=== PATIENT | male | born 1960 | race Caucasian/White ===

== ENCOUNTER 2016-08-05 23:34 | Emergency (ER) ==
[2016-08-06 01:26] LABS: URINE MICRO REVIEW NEEDED? NO; URINE SOURCE VOIDED
[2016-08-06 01:51] LABS: BILIRUBIN URINE NEGATIVE (NEGATIVE); BLOOD URINE NEGATIVE (NEGATIVE); COLOR YELLOW; GLUCOSE URINE NEGATIVE (NEGATIVE); LEUKOCYTES URINE NEGATIVE (NEGATIVE); NITRITE URINE NEGATIVE (NEGATIVE); PROTEIN URINE NEGATIVE (NEGATIVE); SP GRAVITY URINE 1.018; TURBIDITY URINE CLEAR (CLEAR); UROBILINOGEN URINE NORMAL (NORMAL)
[2016-08-06 01:52] LABS: UR EPITHELIAL CELLS <10 /HPF (<10); URINE BACTERIA NEGATIVE /HPF; URINE RBC <10 /HPF (<10); URINE WBC <10 /HPF (<10)
--- NOTE | 2016-08-06 02:19 | PROVIDER DOCUMENTATION ---
HPI-Musculoskeletal Pain/Inj - GENERAL Chief Complaint: Fall Stated Complaint: @08/04 0900 RIBS/ BACK INJURY Time Seen by Provider: 08/06/16 01:57 Source: patient - HX OF PRESENT ILLNESS-MUSKULOSKELTAL Nature of Presenting Problem: PT IS A 55YOM PRESENTING TO THE ED C/O FALL. PT STATES HE TRIPPED COMING OUT OF HIS TRAILER ON TO SOME BLOCKS AND LANDED ON HIS LEFT CVA AREA WITH PAIN IN THE 7TH OR 8TH RIB AREA. PT STATES IT HURTS TO TAKE A DEEP BREATH, SNEEZE, COUGH, LAY ON BACK OR OR THE LEFT SIDE. HE STATES HE FEELS LIKE SOMETHING IS MOVING OR RUBBING IN THERE. NO DEFORMITY OR BRUISING NOTED. NO OTHER COMPLAINTS NOTED AT THIS TIME Quality of Pain: reports: aching, sharp, stabbing Severity in ED: moderate Onset/Duration: 2 days ago Timing: still present Modifying Factors: improves with: lying down, movement, palpation Any recent injury?: Yes (FALL) Locality of Occurance: Home Similar Symptoms Previously?: No Recently seen or treated by another doctor?: No - FALL INJURY Location of Pain/Injury: reports: other (LEFT 7-8TH RIB AREA) Pain Radiation: reports: no radiation Reason for Fall: reports: tripped Symptoms prior to fall:: reports: none Loss of Consciousness: no loss of consciousness Injury Associated Symptoms: reports: pain with inspiration. denies: chest pain , diaphoresis, trouble walking - TRUNK INJURY Location of Injury(s)/Pain: reports: ribs Context / Method of Injury: reports: fall Associated Symptoms: reports: back/neck pain, pain with breathing. denies: sensory/motor loss Review of Systems - Adult - REVIEW OF SYSTEMS - ADULT Constitutional: reports: no symptoms reported Eyes: reports: no symptoms reported Ears, Nose, Mouth & Throat: reports: no symptoms reported Cardiovascular: reports: no symptoms reported Respiratory: reports: no symptoms reported Gastrointestinal: reports: no symptoms reported Genitourinary: reports: no symptoms reported Musculoskeletal: reports: see HPI, back pain. denies: frequent leg cramps, neck pain Integumentary: reports: no symptoms reported Neurological: reports: no symptoms reported Psychiatric: reports: no symptoms reported Endocrine: reports: no symptoms reported Hematologic/Lymphatic: reports: no symptoms reported Allergic/Immunologic: reports: no symptoms reported All Other Systems: Reviewed and Negative Past History - Adult - PAST MEDICAL HISTORY-ADULT Review of Records: reports: Old Records Reviewed, Nursing Assessment Review, Medications Reviewed, Social history reviewed & non-contributory. Major Childhood Illnesses: reports: denies history Cardiovascular: reports: denies history Respiratory: reports: denies history Gastrointestinal: reports: denies history Obstetrical/Gynecological: reports: denies history Genitourinary: reports: denies history Musculoskeletal: reports: denies history Neurological: reports: denies history Endocrine/Immune: reports: denies history Other Conditions: reports: denies history - IMMUNIZATION STATUS Childhood Immunizations: See Nurse Assessment Flu Vaccine: See Nurse Assessment - FAMILY HISTORY Family History: reviewed, not pertinent - SOCIAL HISTORY Smoking: cigarettes, greater than 1 pack/day Provider spent 3-5 mins advising pt. on dangers of tobacco.: Discussed manners to quit use, and f/u contacts for add'l counseling. Substance Use: none/never, denies Alcohol Use Frequency: never Living Situation: alone Physical Exam-Injury Related - Physical Exam-Injury Related Initial Vital Signs Reviewed: Yes General Appearance: alert, moderate distress. negative: appears well, no apparent distress, slow to respond Eyes: PERRL/EOMI, pink conjunctivae Head, Ears, Nose, Mouth & Throat: normocephalic/atraumatic, moist mucous membranes, normal ENT inspection, TMs normal, pharynx normal Neck: non-tender, full range of motion, supple, normal inspection Respiratory: lungs clear, normal breath sounds, no respiratory distress, no accessory muscle use, pain on inspiration, rib tenderness. negative: chest non- tender, no pleuratic chest pain Cardiovascular: normal peripheral pulses, regular rate, rhythm, no edema, no gallop, no JVD, no murmur Abdominal Exam: normal bowel sounds, non tender, soft, no organomegaly, no pulsatile mass Lymphatic: no adenopathy Back Exam: normal inspection, no CVA tenderness, no vertebral tenderness Extremity: normal range of motion, non-tender, normal gait, normal inspection, no pedal edema, no calf tenderness, normal capillary refill, pelvis stable Integumentary: normal color, warm/dry Neurologic: coverer II-XII nml as tested, grossly normal, no motor/sensory deficits , abnormal cerebellar tests, abnormal coverer II-XII, abnormal gait Psych/Mental Status: normal mood/affect, normal thought content, normal thought process, oriented x 3 - Glascow Coma Score Best Eye Response (Jonathon): (4) open spontaneously Best Verbal Response (Norwell): (5) oriented Best Motor Response (Jonathon): (6) obeys commands Progress - PLAN OF CARE/RESULTS Progress/Plan/Lab Results: Laboratory Tests 08/06/16 01:00 Urine Source VOIDED Urine Color YELLOW Urine Turbidity CLEAR Urine pH 6.0 Ur Specific Ferguson 1.018 Urine Protein NEGATIVE Ur Glucose (Stick) NEGATIVE Ur Ketones (Stick) NEGATIVE Urine Blood NEGATIVE Urine Nitrite NEGATIVE Urine Bilirubin NEGATIVE Urobilinogen Dipstick NORMAL Urine Leukocytes NEGATIVE Urine WBC (Auto) <10 Urine RBC (Auto) <10 U Epithel Cells (Auto) <10 Urine Bacteria (Auto) NEGATIVE Orders Category Date Time Status RIBS UNILAT W/PA CHEST LEFT [RAD] Stat Exams 08/05/16 23:52 Taken URINALYSIS [URINALYSIS] Stat Lab 08/06/16 01:00 Completed Vital Signs - 24 hr 08/05/16 23:45 Temperature 97.9 F Pulse Rate 70 Respiratory 16 Rate Blood Pressure 145/91 O2 Sat by Pulse 99 Oximetry - XRAY 1 XRAY: Bilateral XRAY Study: Ribs (PADMINI CASTANEDA) Departure - Departure Time of Disposition Order: 02:23 DIAGNOSIS: Contusion of rib on left side Qualifiers: Encounter type: initial encounter Qualified Code(s): S20.212A - Contusion of left front wall of thorax, initial encounter Disposition: HOME 01 Certified Medical Emergency: Emergent Condition: Stable Additional Instructions: ED Follow Up Instructions: You have been treated by a care provider in the Emergency Department. These instructions are being provided to you so you can have an understanding of how to care for yourself upon discharge. Upon discharge from the Emergency Department, you are responsible for making arrangements for follow-up care by a physician of your choice. Take all prescribed medications as directed. Return to the Emergency Department immediately for any new or worsening symptoms. You may call the Physician Referral phone number at [phone] to obtain a list of Physicians who are taking new patients. Attestation - Scribe Verification/Attestation Scribe:: Helene Wheeler Acting as Scribe for:: John Urrutiaibbarb documention review:: This chart was documented by a scribe and accurately reflects the service the provider performed and the decisions made by the provider. Physician Attestation - Physician Attestation I, the provider, attest to the following statement:: John Castaneda Physician documentation Attestation:: This documentation recorded by the scribe accurately reflects the service I personally performed and the decisions made by me.
[2016-08-06] MEDS ORDERED: PERCOCET-10 PO ONE (02:28)
[2016-08-06 02:43] VITALS: BP 163/91
--- NOTE | 2016-08-06 08:48 | Diag Imaging Result Document ---
PROCEDURE NAME: RIBS UNILAT W/PA CHEST LEFT - 08/05/2016 PA CHEST AND LEFT RIB SERIES, 5 VIEWS: FINDINGS: There is no evidence of pneumothorax or pleural fluid collection. The heart size and pulmonary vascularity are within normal limits. There are no previous studies available for comparison. There is no evidence of acute pulmonary disease otherwise. There is an apparent healing fracture of the lateral 8th rib. No evidence of acute fracture is present. IMPRESSION: No evidence of acute disease.
== END 2016-08-06 02:43 | disposition home or self-care (01) ==
LOC: ED 23:34
DX: S20.212A Contusion of left front wall of thorax, initial encounter (principal); R07.81 Pleurodynia; R07.1 Chest pain on breathing; M54.9 Dorsalgia, unspecified; R10.9 Unspecified abdominal pain; F17.210 Nicotine dependence, cigarettes, uncomplicated; Z71.6 Tobacco abuse counseling; W01.198A Fall on same level from slipping, tripping and stumbling with subsequent striking against other object, initial encounter
CPT/HCPCS: 71101; 81001

== ENCOUNTER 2018-11-20 16:18 | Inpatient (IN) ==
[2018-11-20] MEDS ORDERED: ZOFRAN IV ONE (16:36)
[2018-11-20] MEDS ORDERED: NS 1,000 ML IV ONE ×3 (16:36→18:17)
[2018-11-20] MEDS ORDERED: ATIVAN IV ONE ×2 (17:14→20:43)
[2018-11-20 17:16] LABS: BASO# 0.03 X1000 (0.0-0.2); BASO% 0.3 % (0.0-0.8); HEMATOCRIT 49.2 % (42.0-52.0); HEMOGLOBIN 17.6 g/dL (14.0-18.0); IMM GRAN# 0.02 X1000 (0.0-0.04); IMM GRAN% 0.2 % (0.0-0.5); LYMPH# 1.57 X1000 (1.2-3.4); LYMPH% 14.6 % (20.5-51.1); MCH 30.5 PG (27-31); MCHC 35.8 g/dL (33-37); MCV 85.3 FL (81-99); MONO% 6.5 % (1.7-9.3); MPV 9.1 FL (7.4-10.4); NEUT# 8.44 X1000 (1.4-6.5); NEUT% 78.4 % (42.2-75.2); PLT 285 X1000 (130-400); RBC 5.77 XMIL (4.7-6.1); RDW 12.2 % (11.5-14.5); WBC 10.76 X1000 (4.8-10.8)
[2018-11-20 17:45] LABS: AGAP 31; ALB/GLOB RATIO 1.1; ALBUMIN 4.2 g/dL (3.5-5.0); ALKALINE PHOSPHATASE 81 U/L (32-122); AMYLASE 47 U/L (20-200); BUN 13 mg/dL (8-22); CALCIUM 8.7 mg/dL (8.8-10.2); CHLORIDE 90 mmol/L (98-107); COSMO 279; CREATININE 0.7 mg/dL (0.7-1.2); ESTIMATED GFR > 60; GLUCOSE 160 mg/dL (70-104); GOT 99 U/L (10-34); GPT 96 U/L (10-44); LIPASE 19 U/L (13-60); MAGNESIUM 1.6 mg/dL (1.5-2.7); POTASSIUM 3.2 mmol/L (3.5-5.1); SODIUM 138 mmol/L (136-145); TCO2 17 mmol/L (25-35)
[2018-11-20] MEDS ORDERED: POTASSIUM CHLORIDE 20 MEQ/SWI 20 MEQ/100 ML IVPB IV ONE (17:53)
[2018-11-20 18:11] LABS: ALLEN TEST YES; BE -2.2 mmoll (-3.0-3.0); BLOOD TYPE ARTERIAL; HCO3-(ACT) 23.1 mmoll (20.0-26.0); METHB 0.9 % (0.0-1.5); O2(CT) 22.4 mL/dL (15.0-23.0); O2HB 93.7 % (95.0-99.0); PCO2(98.6) 34 mmHg (35-45); PO2(98.6) 73 mmHg (60-100); SAMPLE BLOOD; SAO2 96.1 % (95.0-100.0); pH(98.6) 7.41 (7.35-7.45)
[2018-11-20 18:12] LABS: MODALITY ROOM AIR
[2018-11-20] MEDS ORDERED: ZOSYN 3.375 GM in NS 50 ML IV ONE (18:16)
[2018-11-20] MEDS ORDERED: MAGNESIUM SULFATE 2 GM/S.W.I. 2 GM/50 ML IVPB IV ONE (18:25)
[2018-11-20] MEDS ORDERED: ATARAX PO PRN (18:29)
[2018-11-20] MEDS ORDERED: M.V.I.-12 10 ML, FOLIC ACID 1 MG, MAGNESIUM SULFATE 1 GM, THIAMINE 100 MG in NS 1,000 ML IV ONE (18:29)
--- NOTE | 2018-11-20 19:33 | HISTORY AND PHYSICAL ---
CHIEF COMPLAINT: "I've been drinking a lot and I'm going through DTs. I need you to stop it." HISTORY OF PRESENT ILLNESS: This is a 58-year-old gentleman with a history of chronic alcohol abuse, admitting to 2 pints of vodka daily, he said since he was 6 years old. He also has a history of paranoid schizophrenia, dementia and hypertension. He presents to the emergency room complaining of nausea, vomiting and alcohol withdrawal. He states that normally he drinks 2 pints of vodka a day, but yesterday afternoon and last night he drank half a gallon, maybe more. He said he was depressed. He was trying to kill himself. At this time he states that he does not want to . In fact, he is asking us to help him. He stated he only feels that way when he is "good and drunk." He states that he has been vomiting bile, except he did have red vomitus that was after drinking Gatorade. He denies any prior GI bleed, but he does say that he vomits any time that his blood alcohol drops. He is noted to have tremors. PAST MEDICAL HISTORY: Dementia, hypertension, paranoid schizophrenia, acute psychosis. PAST SURGICAL HISTORY: Tonsillectomy, knee surgery. SOCIAL HISTORY: He is disabled from his schizophrenia. He smokes about a pack a day. He does drink 1 to 2 pints of vodka at least daily. ALLERGIES: No known drug allergies. HOME MEDICATIONS: Risperdal 3.5 mg p.o. at bedtime, gabapentin 300 mg p.o. t.i.d., Cymbalta 30 mg p.o. at bedtime, trazodone 150 mg p.o. at bedtime, and Remeron 15 mg at bedtime. REVIEW OF SYSTEMS: Discussed with the patient, with pertinent positives stated in the HPI. He denied any syncope or dizziness, any chest pain or palpitations, any fevers or chills, any diarrhea, constipation, any black or bloody stools, any shortness of breath or cough, any hematuria, dysuria, frequency or urgency. PHYSICAL EXAMINATION: GENERAL: This is a 58-year-old gentleman who is sitting up in the stretcher in no distress. VITAL SIGNS: Blood pressure is 141/92 with a heart rate of 111, respirations are 17, temperature is 98.7 degrees with room air saturations 96%. EYES: Pupils equal, round and reactive to light. EOMs are intact. Sclerae are anicteric. HEENT: Head is normocephalic, atraumatic. Mucous membranes are moist. NECK: Supple. Trachea midline. CARDIOVASCULAR: Regular rate and rhythm. S1 and S2 appreciated. Calves are nontender bilateral, with peripheral pulses palpable x4 extremities. PULMONARY: Breath sounds are clear, with no increased work of breathing noted. GASTROINTESTINAL: Abdomen is distended. It is firm. It is nontender to palpation, with bowel sounds in all 4 quadrants. GENITOURINARY: He has no CVA or suprapubic tenderness. NEUROLOGIC: He is alert and oriented. SKIN: Warm and dry. LABORATORY DATA: WBC is 10.7 with hemoglobin 17.6, hematocrit 49.2, and platelets of 285,000. Sodium is 138, potassium 3.2, BUN 13, creatinine 0.7. He does have a CO2 of 17 with an anion gap of 31. Blood sugars 160. AST is 99, ALT is 96, amylase 47, lipase 19, with a blood alcohol of 110. ABGs: PH is 7.41 with a pCO2 of 31, pO2 of 73 and a bicarbonate of 23. Lactate is 8.3. Gastric occult blood was positive. Blood cultures are pending. ASSESSMENT: 1. Metabolic acidosis. This is most likely starvation ketosis secondary to alcohol use. 2. Chronic alcohol use and abuse. 3. Alcohol withdrawal. 4. History of paranoid schizophrenia. 5. Hypokalemia. 6. Nausea and vomiting. 7. History of suicidal ideation. PLAN: The patient will be admitted to ICU for close monitoring. He will be placed on telemetry. He was given a banana bag in the emergency room. Librium taper as well as p.r.n. Bentyl, Atarax and Robaxin. Trend electrolytes and treat appropriately.. Protonix IV daily. Continue IV hydration. Monitor for DTs. CBC and a CMP in the morning. urine drug screen as well as a hepatitis profile. check cardiacs. He will remain n.p.o. at present and then we will advance diet when appropriate. We will restart his psychiatric medications from his discharge from [facility] in August, as he states that his doses have not changed since discharge. As he did have an elevated lactate, we can see no source for infection but blood cultures were obtained. We will continue with Zosyn. With all the vomiting, there is a chance that he could have aspirated, so we will cover. get a chest x-ray and then further antibiotics will be decided upon. For DVT prophylaxis we will use SCDs. We will hold off on any anticoagulation, as we are unsure of varices or any bleeding, and for GI prophylaxis Protonix. Further treatments pending hospital course. Dictated by EVA Mims for Yleitza Christiansen MD cc: EVA Mims MD [facility]
[2018-11-20] MEDS: ATIVAN IV PRN (19:37)
[2018-11-20] MEDS: ZOFRAN IV PRN (19:41)
[2018-11-20] MEDS: LIBRIUM PO SCH (19:47)
--- NOTE | 2018-11-20 20:01 | Diag Imaging Result Doc PS360 ---
EXAM: CHEST-1 VIEW HISTORY: elevated lactate, ? Sepsis TECHNIQUE: Chest single view COMPARISON: 08/06/2016 FINDINGS: The lungs are well expanded. The heart is not enlarged. The vessels are not distended. There are no infiltrates. No effusion identified. IMPRESSION: No pneumonia. Electronically signed by Tien Farnsworth 11/20/2018 7:59 PM
[2018-11-20] MEDS: NS 1,000 ML IV SCH (20:21)
--- NOTE | 2018-11-20 20:52 | Diag Imaging Result Doc PS360 ---
EXAM: ABDOMEN FLAT/UPRIGHT HISTORY: abdominal pain TECHNIQUE: Flat and upright, two views COMPARISON: None. FINDINGS: Limited exam due to the patient's body habitus. No bowel obstruction. No organomegaly. No foreign body. IMPRESSION: Negative exam. Electronically signed by Tien Farnsworth 11/20/2018 8:50 PM
[2018-11-20] MEDS ORDERED: CATAPRES PO SCH (21:00)
[2018-11-20] MEDS: HUMULIN R SUBQ SCH (23:56)
[2018-11-21 00:03] LABS: URINE SOURCE CLEAN CATCH
[2018-11-21] MEDS: ZOFRAN IV PRN (00:08)
[2018-11-21 00:32] LABS: UR AMPHETAMINES QUAL NONE DETECTED (NONE DETECT); UR BARBITUATES QUAL NONE DETECTED (NONE DETECT); UR BENZODIAZEPIN QUAL NONE DETECTED (NONE DETECT); UR CANNABINOIDS QUAL NONE DETECTED (NONE DETECT); UR COCAINE QUAL NONE DETECTED (NONE DETECT); UR METHADONE QUAL NONE DETECTED (NONE DETECT); UR OPIATES QUAL NONE DETECTED (NONE DETECT); UR OXYCODONE QUAL NONE DETECTED (NONE DETECT); UR PCP QUAL NONE DETECTED (NONE DETECT)
[2018-11-21 00:44] LABS: BILIRUBIN URINE NEGATIVE (NEGATIVE); BLOOD URINE NEGATIVE (NEGATIVE); COLOR YELLOW; GLUCOSE URINE NEGATIVE (NEGATIVE); KETONE URINE 20 mg/dL (NEGATIVE); LEUKOCYTES URINE NEGATIVE (NEGATIVE); NITRITE URINE NEGATIVE (NEGATIVE); PROTEIN URINE TRACE mg/dL (NEGATIVE); SP GRAVITY URINE 1.025; TURBIDITY URINE CLEAR (CLEAR); UR EPITHELIAL CELLS <10 /HPF (<10); URINE BACTERIA NEGATIVE /HPF; URINE RBC <10 /HPF (<10); URINE WBC <10 /HPF (<10); UROBILINOGEN URINE NORMAL (NORMAL)
[2018-11-21] MEDS: LIBRIUM PO SCH ×5 (01:56→23:46)
[2018-11-21] MEDS: HALL'S COUGH LOZENGE MT PRN (02:10)
[2018-11-21] MEDS ORDERED: CARDIZEM IV ONE (02:32)
[2018-11-21] MEDS: ATIVAN IV PRN ×3 (02:37→20:40)
[2018-11-21] MEDS ORDERED: CARDIZEM 125 MG in NS 100 ML IV SCH (02:45)
[2018-11-21 04:43] LABS: BLOOD TYPE ARTERIAL; SAMPLE BLOOD
[2018-11-21 04:43] LABS: BASO# 0.02 X1000 (0.0-0.2); BASO% 0.2 % (0.0-0.8); EOS# 0.12 X1000 (0.0-0.7); HEMATOCRIT 40.4 % (42.0-52.0); HEMOGLOBIN 14.2 g/dL (14.0-18.0); IMM GRAN# 0.02 X1000 (0.0-0.04); IMM GRAN% 0.2 % (0.0-0.5); LYMPH# 2.04 X1000 (1.2-3.4); LYMPH% 16.7 % (20.5-51.1); MCHC 35.1 g/dL (33-37); MCV 88.2 FL (81-99); MONO# 1.35 X1000 (0.11-0.59); NEUT# 8.69 X1000 (1.4-6.5); NEUT% 70.9 % (42.2-75.2); PLT 164 X1000 (130-400); RBC 4.58 XMIL (4.7-6.1); RDW 12.2 % (11.5-14.5); WBC 12.24 X1000 (4.8-10.8)
[2018-11-21 04:44] LABS: ALLEN TEST YES; BE 1.3 mmoll (-3.0-3.0); HCO3-(ACT) 25.9 mmoll (20.0-26.0); METHB 1.1 % (0.0-1.5); MODALITY CANNULA; O2(CT) 21.6 mL/dL (15.0-23.0); O2HB 96.3 % (95.0-99.0); PCO2(98.6) 36 mmHg (35-45); PO2(98.6) 109 mmHg (60-100); SAO2 99.4 % (95.0-100.0); THB 15.9 g/dL (11.5-17.4); pH(98.6) 7.45 (7.35-7.45)
[2018-11-21 05:22] LABS: AGAP 12; ALB/GLOB RATIO 1.1; ALBUMIN 3.2 g/dL (3.5-5.0); ALKALINE PHOSPHATASE 63 U/L (32-122); BUN 7 mg/dL (8-22); CALCIUM 7.3 mg/dL (8.8-10.2); CHLORIDE 103 mmol/L (98-107); COSMO 277; CREATININE 0.6 mg/dL (0.7-1.2); ESTIMATED GFR > 60; GLUCOSE 124 mg/dL (70-104); GOT 58 U/L (10-34); GPT 61 U/L (10-44); MAGNESIUM 1.9 mg/dL (1.5-2.7); POTASSIUM 3.3 mmol/L (3.5-5.1); SODIUM 139 mmol/L (136-145); TCO2 24 mmol/L (25-35); TOTAL BILIRUBIN 1.04 mg/dL (0.20-1.00)
[2018-11-21 05:36] LABS: CK INDEX 1.6 (0.0-2.5); CK-MB 3.82 ng/mL (0.0-5.0)
[2018-11-21] MEDS ORDERED: POTASSIUM CHLORIDE 60 MEQ in NS 500 ML IV ONE (05:40)
[2018-11-21] MEDS: SODIUM CHLORIDE 0.9% INJ SCH (06:23)
[2018-11-21] MEDS: PROTONIX IV SCH (06:23)
[2018-11-21 06:56] LABS: URINE SOURCE CATH
[2018-11-21 06:58] LABS: BILIRUBIN URINE NEGATIVE (NEGATIVE); BLOOD URINE NEGATIVE (NEGATIVE); COLOR YELLOW; GLUCOSE URINE NEGATIVE (NEGATIVE); KETONE URINE NEGATIVE (NEGATIVE); LEUKOCYTES URINE NEGATIVE (NEGATIVE); NITRITE URINE NEGATIVE (NEGATIVE); PH URINE 7.5; PROTEIN URINE NEGATIVE (NEGATIVE); SP GRAVITY URINE 1.007; TURBIDITY URINE CLEAR (CLEAR); UROBILINOGEN URINE NORMAL (NORMAL)
[2018-11-21 06:59] LABS: UR EPITHELIAL CELLS <10 /HPF (<10); URINE BACTERIA NEGATIVE /HPF; URINE RBC <10 /HPF (<10); URINE WBC <10 /HPF (<10)
[2018-11-21] MEDS: HUMULIN R SUBQ SCH ×4 (07:41→21:01)
[2018-11-21] MEDS: NS 1,000 ML IV SCH ×2 (07:43→10:44)
--- NOTE | 2018-11-21 10:51 | Diag Imaging Result Doc PS360 ---
EXAM: US ABDOMEN-COMPLETE - 11/21/2018 HISTORY: elevated lfts TECHNIQUE: Ultrasound abdomen COMPARISON: None. FINDINGS: Exam is limited due to artifacts associated with the patient's body habitus, bowel gas, and inability to fully cooperate with positioning. The liver appears diffusely echodense suggesting fatty infiltration. This limits detail there is no focal liver lesion identified. Doppler image shows hepatopedal flow in the portal vein. The spleen is unremarkable. There is no ascites seen. The gallbladder is visualized and shows no discrete abnormality. There are no gallstones identified. The technologist reports negative sonographic Perkins's sign. The common bile duct is upper normal in caliber at 6 mm. There are no abnormalities of the left kidney identified. The right kidney, pancreas, abdominal aorta, and IVC are obscured by artifacts. IMPRESSION: Limited exam due to artifacts. Apparent fatty infiltration of liver. No other visible abnormality. Electronically signed by Delbert Begum 11/21/2018 10:48 AM
[2018-11-21] MEDS: LOVENOX SUBQ SCH ×2 (12:37→23:10)
[2018-11-21 12:42] LABS: CK INDEX 1.7 (0.0-2.5); CK-MB 3.57 ng/mL (0.0-5.0)
[2018-11-21] MEDS: LOPRESSOR PO SCH ×2 (13:00→20:39)
[2018-11-21] MEDS ORDERED: VANCOMYCIN IV PER PHARMACY MISC SCH (13:15)
[2018-11-21] MEDS: VANCOMYCIN 2,000 MG in NS 500 ML IV SCH (13:52)
--- NOTE | 2018-11-21 14:18 | CARDIOLOGY CONSULTATION ---
DATE: 11/21/2018 CHIEF COMPLAINT ON PRESENTATION: Alcohol intoxication/suicidal ideation. HISTORY OF PRESENT ILLNESS: Mr. Saleh is a 58-year-old male with a history of alcohol abuse who presented for evaluation of withdrawals as well as suicidal ideation. Yesterday evening he apparently had a bout of atrial fibrillation, was transferred to the ICU, placed on a diltiazem infusion. He subsequently converted. Presently, he denies any complaints of palpitations. He did not have any episodes of orthopnea last night. There is a reported history of hypertension. Currently, he has no acute complaints. He is somewhat somnolent secondary to sedative medications. PAST MEDICAL HISTORY: 1. Apparent history of hypertension but unclear regarding this as he does not follow up with the physician. 2. Suggested schizophrenia. 3. Alcohol abuse. 4. Previous suicidal ideation. SOCIAL HISTORY: Apparent disability from schizophrenia. He smokes around a pack a day. Drinks alcohol to excess at least 1 to 2 pints of vodka daily. REVIEW OF SYSTEMS: Ten system review of systems is negative except for those mentioned in HPI. PHYSICAL EXAMINATION: Vital signs: He is afebrile. His heart rate is currently in the 70s, blood pressure 162/82. General: He is in no acute distress. HEENT: Oropharynx is moist. Poor dentition. Eye examination shows pink conjunctivae. White sclerae. Neck: Shows no obvious thyromegaly or thyroid tenderness. Cardiovascular: He is in a regular rate and rhythm. He has no obvious murmurs. He has no S3. He has no lower extremity edema. Chest: Sounds clear bilaterally. He has no increased work of breathing. Abdomen: Soft, nontender, nondistended. He has no obvious organomegaly. Skin: Warm and dry throughout without any rashes. Neurological: He is moving all extremities well. He has no lateralizing deficits. Psychiatric: He is somewhat somnolent but wakes up, attempts to answer all questions. PERTINENT DATA: His chest x-ray shows no evidence of any infiltrates. No significant abnormalities. He had an EKG performed yesterday evening during the acute episode demonstrating a atrial fibrillation rate of 181 beats per minute. Mild diffuse ST depression is noted. Laboratory data shows a white count of 12.2, hematocrit 40, platelet count is 164,000. His sodium is 139, potassium 3.3, BUN is 7, creatinine 0.6. His T bilirubin is 1.0. His AST and ALT are 58 and 61 respectively. His cardiac enzymes are negative. His albumin is 3.2. His TSH was normal yesterday. ASSESSMENT: Mr. Saleh is a 58-year-old gentleman with alcoholism and schizophrenia. He presented in alcohol intoxication yesterday, had an episode of atrial fibrillation which converted readily. PLAN: Currently we will stop his diltiazem infusion. Place him on metoprolol 25 mg p.o. q.6 hours. His blood pressure may still be elevated secondary to withdrawal. Currently, he seems to be a CHADS-VASc of 1 for hypertension only. We will check an echocardiogram. I have placed him on weight based Lovenox. If his CHADS-VASc score does not elevate with findings on his echocardiogram then he can likely be discharged on aspirin. cc: Yoel Flores MD
--- NOTE | 2018-11-21 15:34 | PROGRESS NOTE ---
DATE: 11/21/2018 SUBJECTIVE: The patient is resting comfortably in bed. He is awake and alert. He went into atrial fibrillation with RVR overnight and was started on a Cardizem drip. He is currently on one- to-one monitoring due to suicidal ideation. OBJECTIVE: Vital Signs: Temperature 98.6 degrees, blood pressure 135/75, heart rate 65, respirations 22. O2 saturation 94% on 2 L nasal cannula. Intake 1.8 L, output 1.5 L. General: This is a morbidly obese male lying in bed in no acute distress. Heart: S1, S2 normal. Irregularly irregular rate and rhythm. Lungs: Clear to auscultation bilaterally. No wheezing. No rales. No rhonchi. Abdomen: Positive bowel sounds. Soft, obese, nontender, nondistended. Extremities: No edema, no cyanosis, no calf tenderness. Neurologic: The patient is alert and oriented x3. LABS: White blood cell count 12, hemoglobin 14, hematocrit 40, platelets 164,000. Sodium 139, potassium 3.3, chloride 103, CO2 24, BUN 7, creatinine 0.6, glucose 124, calcium 7.3, magnesium 1.9. AST 58, ALT 61, alkaline phosphatase 63, CK 210. Blood cultures, 1 bottle is growing gram-positive cocci. ASSESSMENT AND PLAN: 1. Acute alcohol intoxication. Continue with the p.r.n. Ativan and Librium. 2. Atrial fibrillation. The patient has been transitioned to Lopressor. Further recommendations to follow from the mirror specialist. 3. Possible bacteremia. One bottle of the blood cultures is growing gram- positive cocci. Will start the patient on vancomycin pending the results. 4. Prediabetes. The patient has been placed on a diabetic diet and sliding scale insulin. 5. Morbid obesity. The patient has been counseled about weight loss and proper diet. 6. Suicidal ideation. Continue with one-to-one monitoring. Once the patient is medically stable, we will consult with [facility] since the patient has been a patient there in the past. 7. Fatty liver disease. Aware. 8. Transaminitis. We will monitor closely. 9. Alcohol abuse. Aware. The patient has been counseled about cessation. 10. Schizoaffective disorder. Continue on Risperdal and Remeron. cc: Yelitza Christiansen MD [facility]
[2018-11-21] MEDS: CILOXAN OPHTH SOLN BOTH EYES SCH ×2 (16:43→20:37)
[2018-11-21] MEDS: ROBAXIN PO PRN (17:53)
[2018-11-21] MEDS: BENTYL PO PRN (20:37)
[2018-11-21] MEDS ORDERED: RISPERDAL PO SCH (21:00)
[2018-11-21] MEDS ORDERED: CYMBALTA PO SCH (21:00)
[2018-11-21] MEDS ORDERED: REMERON PO SCH (21:00)
[2018-11-21] MEDS ORDERED: MIRALAX PO SCH (21:00)
[2018-11-22] MEDS: ATIVAN IV PRN ×2 (00:47→03:00)
[2018-11-22] MEDS: CILOXAN OPHTH SOLN BOTH EYES SCH ×6 (00:54→20:10)
[2018-11-22] MEDS: BENTYL PO PRN (02:16)
[2018-11-22] MEDS: LOPRESSOR PO SCH ×5 (02:16→20:10)
[2018-11-22] MEDS: ROBAXIN PO PRN (02:20)
[2018-11-22 03:37] LABS: ALLEN TEST YES; BE 0.7 mmoll (-3.0-3.0); BLOOD TYPE ARTERIAL; HCO3-(ACT) 25.2 mmoll (20.0-26.0); O2(CT) 18.7 mL/dL (15.0-23.0); PO2(98.6) 62 mmHg (60-100); SAMPLE BLOOD; SAO2 91.2 % (95.0-100.0); THB 15.1 g/dL (11.5-17.4); pH(98.6) 7.24 (7.35-7.45)
[2018-11-22 03:39] LABS: MODALITY VENTIMASK; O2HB 88.2 % (95.0-99.0); PCO2(98.6) 71 mmHg (35-45)
[2018-11-22] MEDS ORDERED: AMIDATE ONE (03:53)
[2018-11-22] MEDS ORDERED: QUELICIN ONE (03:54)
[2018-11-22] MEDS ORDERED: VERSED ONE (03:58)
[2018-11-22] MEDS ORDERED: AMIDATE IV ONE (04:15)
[2018-11-22] MEDS ORDERED: VERSED IV ONE (04:15)
[2018-11-22] MEDS ORDERED: LASIX IV ONE (04:25)
[2018-11-22 04:37] LABS: BASO# 0.02 X1000 (0.0-0.2); BASO% 0.3 % (0.0-0.8); EOS# 0.13 X1000 (0.0-0.7); EOS% 2.1 % (0.0-10.0); HEMATOCRIT 42.2 % (42.0-52.0); HEMOGLOBIN 14.7 g/dL (14.0-18.0); IMM GRAN# 0.02 X1000 (0.0-0.04); IMM GRAN% 0.3 % (0.0-0.5); LYMPH# 1.17 X1000 (1.2-3.4); LYMPH% 18.5 % (20.5-51.1); MCH 31.2 PG (27-31); MCHC 34.8 g/dL (33-37); MCV 89.6 FL (81-99); MONO% 9.5 % (1.7-9.3); MPV 9.1 FL (7.4-10.4); NEUT# 4.38 X1000 (1.4-6.5); NEUT% 69.3 % (42.2-75.2); PLT 141 X1000 (130-400); RBC 4.71 XMIL (4.7-6.1); WBC 6.32 X1000 (4.8-10.8)
[2018-11-22 04:42] LABS: INR 1.04; PROTIME 14.5 Seconds (11.0-16.0)
[2018-11-22 04:43] LABS: PTT 40.9 Seconds (22.3-41.8)
[2018-11-22 04:54] LABS: AGAP 10; ALB/GLOB RATIO 1.3; ALBUMIN 3.5 g/dL (3.5-5.0); ALKALINE PHOSPHATASE 81 U/L (32-122); BUN 5 mg/dL (8-22); CALCIUM 7.8 mg/dL (8.8-10.2); CHLORIDE 104 mmol/L (98-107); COSMO 280; CREATININE 0.6 mg/dL (0.7-1.2); ESTIMATED GFR > 60; GLUCOSE 164 mg/dL (70-104); GOT 41 U/L (10-34); GPT 47 U/L (10-44); POTASSIUM 3.5 mmol/L (3.5-5.1); SODIUM 140 mmol/L (136-145); TCO2 26 mmol/L (25-35); TOTAL BILIRUBIN 0.77 mg/dL (0.20-1.00); TOTAL PROTEIN 6.1 g/dL (6.3-8.3)
[2018-11-22 05:34] LABS: ALLEN TEST YES; BE 2.2 mmoll (-3.0-3.0); BLOOD TYPE ARTERIAL; HCO3-(ACT) 26.6 mmoll (20.0-26.0); METHB 1.1 % (0.0-1.5); O2(CT) 20.1 mL/dL (15.0-23.0); O2HB 96.6 % (95.0-99.0); PCO2(98.6) 46 mmHg (35-45); PO2(98.6) 152 mmHg (60-100); SAMPLE BLOOD; SAO2 99.4 % (95.0-100.0); SRATE 16 BPM; THB 14.6 g/dL (11.5-17.4); TVOL 550 mL; pH(98.6) 7.39 (7.35-7.45)
[2018-11-22] MEDS: DIPRIVAN 1% 1,000 MG/100 ML BOTTLE IV SCH ×6 (05:34→23:37)
[2018-11-22 05:35] LABS: MODALITY VENTILATOR
[2018-11-22] MEDS: LIBRIUM PO SCH (05:45)
--- NOTE | 2018-11-22 05:56 | Diag Imaging Result Doc PS360 ---
EXAM: CHEST-PORTABLE HISTORY: Resp Failure TECHNIQUE: Chest single view COMPARISON: 11/20/2018 FINDINGS: Poor inspiratory effort. The heart is not enlarged. Mild vascular distention. There are no infiltrates. No effusion identified. IMPRESSION: Mild pulmonary edema. Electronically signed by Tien Farnsworth 11/22/2018 5:53 AM
--- NOTE | 2018-11-22 06:21 | Diag Imaging Result Doc PS360 ---
CT ANGIOGRM PULMONARY ARTERIES - 11/22/2018 INDICATION: Hypoxia,Acute Resp. Failure TECHNIQUE: Axial CT images were obtained after administering intravenous contrast. Coronal MIP images were generated. COMPARISON: None FINDINGS: There is an endotracheal tube with the tip at the level of the cricoid. This should be advanced by at least 4 cm. There is no pulmonary embolism. Heart and great vessels are normal. No adenopathy. Upper abdominal images are normal. There is some dependent atelectasis/infiltrate in the lungs bilaterally. Major airways are clear. There are moderate degenerative changes of the spine. No acute or suspicious bony lesion. IMPRESSION: 1. High intubation. Recommend advancement of the endotracheal tube by about 4 cm. 2. Negative for pulmonary embolism. 3. Mild bibasilar dependent atelectasis or infiltrates. This exam was performed using automated exposure control, adjustment of mA or kV according to patient size, and/or use of iterative reconstruction technique Electronically signed by Marck Baum 11/22/2018 6:18 AM
[2018-11-22] MEDS: HUMULIN R SUBQ SCH ×4 (06:51→20:27)
[2018-11-22] MEDS: PROTONIX IV SCH (06:52)
[2018-11-22] MEDS: SODIUM CHLORIDE 0.9% INJ SCH (06:53)
--- NOTE | 2018-11-22 07:04 | PROGRESS NOTE ---
DATE: 11/22/2018 Mr. Saleh is a 58-year-old male with a past medical history of dementia, hypertension, paranoid schizophrenia, and acute psychosis, who was admitted for suicidal ideation and acute alcohol intoxication. The patient has been going through alcohol withdrawal. According to his nurse, he had had increasing agitation throughout the night. Though he had not had any respiratory difficulty, the patient was actually on room air with an oxygen saturation of 100%. Vital signs were also within normal limits. Though at approximately at 3:30, the patient's nurse did call and notify me that he had had a sudden change in his respiratory status, and the patient did become very lethargic and was having respiratory difficulty with increased work of breathing. They performed stat arterial blood gas, which did note him to have a pH of 7.24, pCO2 of 71, PO2 of 62, HCO3 of 25.2, with oxyhemoglobin of 88.2 and O2 saturation of 91.2. We did place the patient on BiPAP briefly, though this patient was not tolerating this well. He was still having very labored breathing. Upon auscultation, he had diminished lung sounds, and did not sound like he was moving a whole lot of air, and was not adequately ventilating. Dr. Church, the attending hospitalist physician, as well as Dr. Calvo, did come to the patient's bedside for intubation. The patient did receive medications of Versed, etomidate, and the patient was intubated by respiratory therapist, Pb. He had positive color change. Bilateral breath sounds were auscultation. Dr. Church did confirm tube placement with verification of chest x-ray. Also, upon Dr. Church reviewing the patient's chest xray he noted that there was pulmonary edema. We have ordered for him to receive a dose of IV lasix. He will be placed on a Diprivan drip for sedation. Post intubation vital signs were within normal limits. He did have an oxygen saturation of 97%. Given the patient's acute respiratory failure as well as he did have a new onset of atrial fibrillation yesterday, we will go ahead and perform a CT angiogram of pulmonary arteries for further evaluation and to evaluate for possible pulmonary embolism. We will await the results, and continue to follow closely. We have placed a consult with Pulmonology for ventilator management as well. Further orders and recommendations pending hospital course, diagnostic studies, and physician evaluation. Dictated by EVA Gardner for Dorian Sumner MD Addendum: Patient seen and examined by myself. Agree with EVA note. It reflects my assessment and plan. cc: Dorian Sumner MD [facility]
[2018-11-22] MEDS: MAXIPIME 1 GM in NS 50 ML IV SCH ×2 (07:38→18:09)
[2018-11-22 08:18] LABS: HEPATITIS PROFILE ACUTE SEE COMMENTS
[2018-11-22] MEDS: VANCOMYCIN 2,000 MG in NS 500 ML IV SCH (08:28)
--- NOTE | 2018-11-22 10:08 | Diag Imaging Result Doc PS360 ---
EXAM: CHEST-PORTABLE HISTORY: Verify NG placement. TECHNIQUE: Chest abdomen single view COMPARISON: 4:07 AM FINDINGS: A nasogastric tube has been placed since the prior exam. This is in good position overlying the esophagus and stomach. Electronically signed by Tien Farnsworth 11/22/2018 10:06 AM
--- NOTE | 2018-11-22 10:40 | EKG Report ---
Test Performed on : 11/21/2018 01:31:05 AM Test Reason : Blood Pressure : / mmHG Vent. Rate : 181 BPM Atrial Rate : 076 BPM P-R Int : 000 ms QRS Dur : 082 ms QT Int : 264 ms P-R-T Axes : 000 015 233 degrees QTc Int : 458 ms Atrial fibrillation. with rapid ventricular response. with premature ventricular or aberrantly conduc reinier complexes. Low voltage QRS Marked ST abnormality, possible inferior subendocardial injury Abnormal ECG When compared with ECG of 14-OCT-2018 00:38, Atrial fibrillation. has replaced Sinus rhythm. Vent. rate has increased BY [address] now depressed in Inferior leads ST now depressed in Anterolateral leads T wave amplitude has decreased in Lateral leads Confirmed by Isaías BARTHOLOMEW, Andi Carpenter ([id number]) on 11/23/2018 7:27:47 PM
[2018-11-22] MEDS: LOVENOX SUBQ SCH (11:32)
[2018-11-22] MEDS ORDERED: CALMOSEPTINE OINTMENT TOP PRN (13:36)
[2018-11-23] MEDS: ATIVAN IV PRN (00:44)
[2018-11-23] MEDS: VANCOMYCIN 2,000 MG in NS 500 ML IV SCH ×2 (01:09→21:32)
[2018-11-23] MEDS: LOPRESSOR PO SCH ×4 (01:10→20:22)
[2018-11-23] MEDS: LOVENOX SUBQ SCH ×2 (01:10→11:53)
[2018-11-23] MEDS: CILOXAN OPHTH SOLN BOTH EYES SCH ×6 (01:11→20:20)
[2018-11-23] MEDS: DIPRIVAN 1% 1,000 MG/100 ML BOTTLE IV SCH ×8 (02:14→23:27)
[2018-11-23] MEDS: DUONEB (A & A) INH SCH ×6 (03:35→23:16)
[2018-11-23] MEDS ORDERED: NS 1,000 ML IV SCH (04:00)
[2018-11-23 04:36] LABS: ALLEN TEST YES; BLOOD TYPE ARTERIAL; HCO3-(ACT) 24.9 mmoll (20.0-26.0); O2(CT) 19.7 mL/dL (15.0-23.0); O2HB 96.8 % (95.0-99.0); PCO2(98.6) 36 mmHg (35-45); PO2(98.6) 102 mmHg (60-100); SAMPLE BLOOD; SAO2 99.1 % (95.0-100.0); SRATE 16 BPM; THB 14.4 g/dL (11.5-17.4); TVOL 550 mL; pH(98.6) 7.43 (7.35-7.45)
[2018-11-23 04:39] LABS: MODALITY VENTILATOR
[2018-11-23 05:40] LABS: BASO# 0.02 X1000 (0.0-0.2); BASO% 0.2 % (0.0-0.8); EOS# 0.22 X1000 (0.0-0.7); EOS% 2.2 % (0.0-10.0); HEMATOCRIT 39.9 % (42.0-52.0); HEMOGLOBIN 13.8 g/dL (14.0-18.0); IMM GRAN# 0.02 X1000 (0.0-0.04); IMM GRAN% 0.2 % (0.0-0.5); LYMPH# 1.68 X1000 (1.2-3.4); MCHC 34.6 g/dL (33-37); MCV 89.7 FL (81-99); MONO# 0.63 X1000 (0.11-0.59); MONO% 6.4 % (1.7-9.3); MPV 9.7 FL (7.4-10.4); NEUT# 7.32 X1000 (1.4-6.5); PLT 131 X1000 (130-400); RBC 4.45 XMIL (4.7-6.1); WBC 9.89 X1000 (4.8-10.8)
[2018-11-23] MEDS: SODIUM CHLORIDE 0.9% INJ SCH (06:02)
[2018-11-23] MEDS: MAXIPIME 1 GM in NS 50 ML IV SCH ×2 (06:02→18:28)
[2018-11-23] MEDS: PROTONIX IV SCH (06:02)
[2018-11-23 06:03] LABS: AGAP 13; ALB/GLOB RATIO 1.1; ALBUMIN 3.1 g/dL (3.5-5.0); ALKALINE PHOSPHATASE 73 U/L (32-122); BUN 8 mg/dL (8-22); CALCIUM 8.4 mg/dL (8.8-10.2); CHLORIDE 104 mmol/L (98-107); COSMO 278; CREATININE 0.6 mg/dL (0.7-1.2); ESTIMATED GFR > 60; GLUCOSE 100 mg/dL (70-104); GOT 28 U/L (10-34); GPT 34 U/L (10-44); POTASSIUM 3.3 mmol/L (3.5-5.1); SODIUM 140 mmol/L (136-145); TCO2 23 mmol/L (25-35); TOTAL BILIRUBIN 0.45 mg/dL (0.20-1.00)
--- NOTE | 2018-11-23 08:04 | Diag Imaging Result Doc PS360 ---
EXAM: CHEST-1 VIEW INDICATION: SOB TECHNIQUE: One view COMPARISON: 11/22/2018 support tubes and lines are in stable positions. FINDINGS: Mild pulmonary venous congestion appears to have improved slightly. No new consolidation is identified. Cardiac silhouette is stable. IMPRESSION: Likely slight improvement of pulmonary venous congestion. Electronically signed by Reynaldo Bee 11/23/2018 8:01 AM
[2018-11-23] MEDS: HUMULIN R SUBQ SCH ×4 (08:29→20:23)
--- NOTE | 2018-11-23 11:49 | PROGRESS NOTE ---
DATE: 11/23/2018 SUBJECTIVE: Mr. Saleh is a 58 year old who was admitted on 11/20/2018. He had been drinking a lot, going through DTs. He has a history of chronic alcohol abuse, admits to 2 pints of vodka a day since he was 6 years old. He has a history of paranoid schizophrenia, dementia, hypertension. He presents to the emergency room on 11/20/2018 with nausea, vomiting, alcohol withdrawal. He state he normally drinks about 2 pints of vodka a day, but the day before he drank half a gallon, maybe more. He said he was depressed. He reports he was trying to kill himself at this time. On presentation, he said he was good and drunk. So he was admitted with alcohol withdrawal, metabolic acidosis, likely starvation ketosis secondary to alcohol use, and he is intubated. He is still intubated and sedated. He appears comfortable. OBJECTIVE: He remains afebrile. Temperature is 97.6, pulse 65, respirations 16, blood pressure 119/76. Pupils are equal and round. Lungs: Clear in all lung costa. Cardiovascular: Regular rate and rhythm without murmur or S3. Abdomen: Soft. Skin: Warm and dry. Urine output is 2200 mL. DIAGNOSTIC DATA: Blood sugars are 116, 101, 100. Chest x-ray from this morning likely slight improvement in pulmonary venous congestion. We did a pulmonary arteriogram. He was negative for pulmonary embolism. Mild bibasilar dependent atelectasis and infiltrates. ASSESSMENT AND PLAN: 1. Acute alcohol intoxication. Continue Ativan and Librium p.r.n. 2. Atrial fibrillation. The patient is back in sinus rhythm. He is on some Lopressor. 3. Possible bacteremia. Cultures with gram-positive cocci, one culture, so on vancomycin. 4. Prediabetes. Blood sugar is pretty well controlled. 5. Morbid obesity. 6. Suicidal ideation. Continue one-on-one monitoring. Consult [facility] when he is through alcohol withdrawals. 7. Fatty liver disease. 8. Transaminitis that is improving. 9. Alcohol abuse. 10.Schizoaffective disorder. REVIEW OF ORDERS: He is on Lopressor 25 mg p.o. q.6 hours. He is getting ciprofloxacin ophthalmic drops I think for conjunctivitis. He is on Lovenox 120 mg subcutaneously q.12 which I believe we can stop. CT scan did not show any pulmonary emboli. We are giving him cefepime 1 g q.12, Protonix 40 mg IV q.24 hours, vancomycin 2 g IV q.18 hours. cc: Andi Metz MD
[2018-11-24] MEDS: CILOXAN OPHTH SOLN BOTH EYES SCH ×4 (01:15→11:45)
[2018-11-24] MEDS: LOVENOX SUBQ SCH ×2 (01:16→11:49)
[2018-11-24] MEDS: DIPRIVAN 1% 1,000 MG/100 ML BOTTLE IV SCH ×3 (01:16→06:59)
[2018-11-24] MEDS: LOPRESSOR PO SCH ×4 (01:16→20:20)
[2018-11-24] MEDS: DUONEB (A & A) INH SCH ×6 (03:41→23:15)
[2018-11-24 04:19] LABS: ALLEN TEST YES; BE -0.3 mmoll (-3.0-3.0); BLOOD TYPE ARTERIAL; HCO3-(ACT) 24.6 mmoll (20.0-26.0); O2(CT) 18.8 mL/dL (15.0-23.0); O2HB 93.1 % (95.0-99.0); PCO2(98.6) 38 mmHg (35-45); PO2(98.6) 65 mmHg (60-100); SAMPLE BLOOD; SAO2 95.8 % (95.0-100.0); SRATE 16 BPM; THB 14.4 g/dL (11.5-17.4); TVOL 550 mL; pH(98.6) 7.41 (7.35-7.45)
[2018-11-24 04:24] LABS: MODALITY VENTILATOR
[2018-11-24 05:48] LABS: BASO# 0.01 X1000 (0.0-0.2); BASO% 0.1 % (0.0-0.8); EOS# 0.24 X1000 (0.0-0.7); EOS% 2.1 % (0.0-10.0); HEMATOCRIT 39.8 % (42.0-52.0); HEMOGLOBIN 13.8 g/dL (14.0-18.0); IMM GRAN# 0.03 X1000 (0.0-0.04); IMM GRAN% 0.3 % (0.0-0.5); LYMPH% 12.1 % (20.5-51.1); MCH 30.9 PG (27-31); MCHC 34.7 g/dL (33-37); MCV 89.2 FL (81-99); MONO# 0.79 X1000 (0.11-0.59); MONO% 6.8 % (1.7-9.3); MPV 10.3 FL (7.4-10.4); NEUT# 9.14 X1000 (1.4-6.5); NEUT% 78.6 % (42.2-75.2); PLT 132 X1000 (130-400); RBC 4.46 XMIL (4.7-6.1); WBC 11.61 X1000 (4.8-10.8)
[2018-11-24] MEDS: MAXIPIME 1 GM in NS 50 ML IV SCH ×2 (06:08→18:19)
[2018-11-24] MEDS: PROTONIX IV SCH (06:08)
[2018-11-24] MEDS: SODIUM CHLORIDE 0.9% INJ SCH (06:08)
[2018-11-24] MEDS: HUMULIN R SUBQ SCH ×4 (06:27→20:08)
--- NOTE | 2018-11-24 06:42 | Diag Imaging Result Doc PS360 ---
CHEST-1 VIEW - 11/24/2018 INDICATION: SOB COMPARISON: 11/23/2018 FINDINGS: Stable endotracheal tube and nasogastric tube in good position. Stable cardiomegaly and pulmonary vascular congestion. No infiltrates or significant edema. IMPRESSION: No change from prior. Electronically signed by Marck Baum 11/24/2018 6:40 AM
[2018-11-24] MEDS: PRECEDEX 200 MICROGM in NS 48 ML IV SCH ×4 (07:47→18:19)
[2018-11-24 08:11] LABS: AGAP 13; ALB/GLOB RATIO 0.9; ALKALINE PHOSPHATASE 74 U/L (32-122); BUN 5 mg/dL (8-22); CALCIUM 8.7 mg/dL (8.8-10.2); CHLORIDE 102 mmol/L (98-107); COSMO 274; CREATININE 0.5 mg/dL (0.7-1.2); ESTIMATED GFR > 60; GLUCOSE 78 mg/dL (70-104); GOT 20 U/L (10-34); GPT 27 U/L (10-44); POTASSIUM 3.3 mmol/L (3.5-5.1); SODIUM 139 mmol/L (136-145); TCO2 24 mmol/L (25-35); TOTAL PROTEIN 6.4 g/dL (6.3-8.3)
[2018-11-24] MEDS: VANCOMYCIN 2,000 MG in NS 500 ML IV SCH ×2 (08:42→21:44)
[2018-11-24 09:45] LABS: ALLEN TEST YES; BE 0.1 mmoll (-3.0-3.0); BLOOD TYPE ARTERIAL; HCO3-(ACT) 24.8 mmoll (20.0-26.0); METHB 1.1 % (0.0-1.5); MODALITY VENTILATOR; O2(CT) 18.1 mL/dL (15.0-23.0); O2HB 91.8 % (95.0-99.0); PCO2(98.6) 35 mmHg (35-45); PO2(98.6) 60 mmHg (60-100); SAMPLE BLOOD; SAO2 94.4 % (95.0-100.0); pH(98.6) 7.44 (7.35-7.45)
--- NOTE | 2018-11-24 11:42 | PROGRESS NOTE ---
DATE: 11/22/2018 SUBJECTIVE: The patient went into respiratory failure overnight and was subsequently intubated and placed on the ventilator. At this time, he is currently sedated. OBJECTIVE: Vital Signs: Temperature 98.2 degrees, blood pressure 109/63, heart rate 63, respirations 16, O2 saturation 99% on the mechanical ventilator. Intake and Output: Intake 3.3 L. Output 4.7 L. General: This is a morbidly obese male, currently sedated on the ventilator. Head: Normocephalic, atraumatic. Heart: S1, S2 normal. Regular rate and rhythm. Lungs: Coarse breath sounds bilaterally. Abdomen: Positive bowel sounds. Soft. Distended. Extremities: No edema, no cyanosis. Neurologic: The patient is currently sedated. DIAGNOSTIC STUDIES: White blood cell count 6.3, hemoglobin 14, hematocrit 42, platelets 141,000. Sodium 140, potassium 3.5, chloride 94, CO2 of 26, BUN 5, creatinine 0.6, glucose 164, phosphorus 2.6, AST 41, ALT 37, alkaline phosphatase 81. Chest x-ray with mild pulmonary edema. ASSESSMENT AND PLAN: 1. Acute hypoxemic respiratory failure. Continue with ventilatory support as directed by the selvage machine operator. 2. Acute alcohol intoxication with withdrawal. Aware. 3. Atrial fibrillation. Continue with the Cardizem drip as directed by the pattern chain builder. 4. Possible pneumonia. Continue with broad-spectrum antibiotics. Sputum culture and blood cultures are currently pending. 5. Morbid obesity. Aware. 6. Prediabetes. Continue with sliding scale insulin. 7. Suicidal ideation. Aware. 8. Fatty liver disease. Aware. 9. Alcohol abuse. Aware. 10. Deep vein thrombosis prophylaxis. The patient is on full-dose Lovenox. cc: Yelitza Christiansen MD [facility]
[2018-11-24] MEDS: TYLENOL NG PRN ×2 (12:28→17:28)
--- NOTE | 2018-11-24 14:14 | PROGRESS NOTE ---
DATE: 11/24/2018 SUBJECTIVE: Mr. Saleh is in restraints. He still intubated and sedated. OBJECTIVE: Temperature 98.6 degrees, pulse 77, respirations 20, blood pressure 150/70. Pupils are equal and round. Lungs are clear in all lung costa anterior and lateral. Cardiovascular: Regular rhythm and rate without murmur or S3. Urine output: 1900 mL. DIAGNOSTIC STUDIES: Blood sugars 193 and 80. His chest x-ray from this morning: No change. Stable endotracheal tube, nasogastric tube in good position. Stable cardiomegaly and pulmonary vascular congestion. No infiltrates or significant edema. ASSESSMENT AND PLAN: Acute alcohol intoxication and now I think going through alcohol withdrawals, questionable delirium tremens. He is on the Librium and phenobarbital protocol, but he is intubated and requiring sedation. He is on vancomycin and cefepime, and he is on full anticoagulation with Lovenox 120 mg subcutaneous q.12 h., on Protonix 40 mg IV q.24 h., and he is on Precedex for sedation as well. LABORATORY DATA: From this morning, white count 11,610, hematocrit 39, platelet count 132,000. Sodium 139, potassium 3.3, chloride 102, BUN 5, creatinine 0.5. cc: Andi Metz MD
--- NOTE | 2018-11-24 16:17 | CARDIOLOGY PROGRESS NOTE ---
DATE: 11/22/2018 SUBJECTIVE: Mr. Saleh overnight was intubated it seems like for airway protection, agitation, hypoxia. Currently, he is sedated. PHYSICAL EXAMINATION: Vital signs: He is afebrile. His heart rate is in the 60s and sinus. His most recent blood pressure is 140/90. General: No acute distress. Cardiovascular: Regular rate and rhythm, somewhat distant. No lower extremity edema. Warm and well-perfused extremities. Chest exam is clear bilaterally. No increased work of breathing. Abdomen: Soft, nontender, minimal bowel sounds heard. DATA: Sodium 140, potassium is 3.5, BUN 5, creatinine 0.6. His white count is 6.3, hematocrit 42, platelet count is 141. ASSESSMENT: Mr. Saleh is a 58-year-old gentleman, who presented with alcohol intoxication, suicidal ideation. He subsequently had a bout of atrial fibrillation. PLAN: He was intubated overnight secondary to what appears to be acute agitation likely secondary to alcohol withdrawal. He has not had any recurrence of his atrial fibrillation. He had an echocardiogram earlier that we are still awaiting the results on. cc: Yoel Flores MD
--- NOTE | 2018-11-24 17:51 | CONSULTATION ---
DATE OF CONSULTATION: 11/22/2018 REQUESTING PROVIDER: Yelitza Christiansen MD REASON FOR CONSULTATION: Ventilator management. HISTORY OF PRESENT ILLNESS: This is a 58-year-old male with a medical history of chronic alcohol abuse, tobacco abuse, morbid obesity, dementia, paranoid schizophrenia, acute psychosis, and hypertension. He has been admitted since 11/20/2018 with chronic alcohol abuse with alcohol withdrawal, nausea/vomiting, hypokalemia, and metabolic acidosis. He apparently developed acute respiratory failure last night and eventually required intubation. He is currently sedated and mechanical ventilated. He opens eyes at times, but is not responsive. He has no acute distress. There is no family at the bedside. All information is obtained from the E- chart. PAST MEDICAL HISTORY: 1. Chronic alcohol abuse. 2. Tobacco abuse. 3. Morbid obesity. 4. Dementia. 5. Paranoid schizophrenia. 6. Acute psychosis. 7. Seizure. 8. Hypertension. 9. Tonsillectomy. 10. Knee surgery. SOCIAL HISTORY: The patient is disabled from schizophrenia. He smokes about a pack per day. He has been drinking since the age of 6. He currently drinks 1 to 2 pints of vodka at least daily. FAMILY HISTORY: Unknown. ALLERGIES: No known drug allergies. REVIEW OF SYSTEMS: Unable to be obtained. PHYSICAL EXAMINATION: Vital Signs: Temperature 97.8 degrees, blood pressure 109/85, pulse 73, respiratory rate 18, oxygen saturation 99% on AC mechanical ventilator with spontaneous rate 16, FiO2 of 100%, tidal volume 550, and PEEP 5. General: Chronically ill- appearing, appears older than stated age, intubated with no acute distress noted. HEENT: Atraumatic. Trachea midline. ET tube in place. Mucosa pink and moist. Respiratory: Respiration even and unlabored. Symmetrical excursion. Clear to auscultation. Cardiovascular: Regular rate and rhythm with no murmur noted. Gastrointestinal: Normoactive bowel sounds in all 4 quadrants. Firm, distended. Extremities: No pedal edema. No cyanosis. No clubbing. Dorsalis pedis 2+ bilaterally Left knee covered with psoriasis. Neurologic: Sedated. Opens eyes spontaneous but unresponsive. DIAGNOSTIC STUDIES: White blood cells 6.32, hemoglobin 14.7, hematocrit 42.2, platelet 141,000. Sodium 140, potassium 3.5, chloride 104, carbon dioxide 26, BUN 5, creatinine 0.6, glucose 164. ABG: PH 7.39, pCO2 of 46, PO2 of 152, HCO3 of 26.6, base excess 2.2, and oxyhemoglobin 96.6. Chest x-ray revealed mild pulmonary edema. ASSESSMENT: This is a 58-year-old male with a medical history of chronic alcohol abuse, tobacco abuse, morbid obesity, dementia, paranoid schizophrenia, acute psychosis, and hypertension. He has been admitted to the intensive care unit with chronic alcohol abuse with alcohol withdrawal, nausea, vomiting, hypochloremia, and metabolic acidosis. 1. Acute hypoxemic respiratory failure, ruled out pulmonary emboli by CTPA. 2. Acute pulmonary edema. 3. Alcohol abuse, likely with alcohol withdrawal. 4. Tobacco abuse. 5. Morbid obesity. 6. Questionable bacteremia. PLAN: 1. Continue AC mechanical ventilator, and we will start weaning trials when appropriate. 2. Continue antibiotic as prescribed. 3. We will follow up with ABG, CBC, BMP, and chest x-ray. 4. Continue GI and DVT prophylaxis. 5. Further recommendations pending hospital course. Thank you for the courtesy of this consult. Dictated by EVA Hamm for Stoney Justin MD cc: EVA Hamm MD [facility]
--- NOTE | 2018-11-24 20:41 | CARDIOLOGY PROGRESS NOTE ---
DATE: 11/24/2018 SUBJECTIVE: Mr. Saleh has been extubated. He did have a fever this afternoon at 100.4. PHYSICAL: Heart rate 79, blood pressure 139/85. I's and O's were negative slightly yesterday.General: No acute distress. Cardiovascular: He sounds to be in a regular rate and rhythm. His telemetry currently shows sinus. He has no lower extremity edema. His abdomen is soft, nontender. PERTINENT DATA: Sodium 139, potassium 3.3, BUN 5, creatinine 0.5. ASSESSMENT: Mr. Saleh is a 58-year-old gentleman who presented with alcohol withdrawal and episode of atrial fibrillation. PLAN: We will not make any adjustments to his medications. Currently he is maintaining sinus rhythm. cc: Yoel Flores MD
--- NOTE | 2018-11-24 21:10 | ECHO REPORT ---
ORDER DATE: 11/22/2018 INDICATION: A 58-year-old male with atrial fibrillation, new onset. The study was done with addition of Optison. M-MODE MEASUREMENTS: Left ventricle end diastole: 2.9. Left ventricle end systole: 2.0. Posterior wall: 0.8. Interventricular septum: 0.7. Left atrium: 3.1. Aortic diameter: 3.4. SUMMARY OF 2-DIMENSIONAL IMAGIN. The study is clinically difficult. Optison was added to visualize the endocardium. 2. Global left ventricular systolic function may be normal, probably on the order of 55%. 3. The right ventricle appears to be grossly normal. There is no definite pericardial effusion. 4. The aortic valve shows some sclerosis of the cusps. I do not see definite stenosis or regurgitation. 5. The pulmonic valve looks grossly normal. 6. Pulsed wave Doppler of mitral inflow shows mild reversal of the E/A ratio. 7. Tissue Doppler of septal and lateral mitral annulus averages 5 cm. That indicates impaired left ventricular relaxation. That would be abnormal for this patient's age. 8. The tricuspid valve shows a very mild degree of regurgitation. Pulmonary pressure could not be accurately estimated here. 9. The pulmonic valve was really not well visualized. SUMMARY: This is a limited echocardiographic study. Global left ventricular systolic function appears to be grossly normal. There is no indication of gross valvular abnormality. Clinical correlation is strongly recommended. I will consider repeating the study when the patient is more stable. cc: MD Yoel Puente MD
[2018-11-25] MEDS: LOVENOX SUBQ SCH (01:10)
[2018-11-25] MEDS: LOPRESSOR PO SCH ×4 (01:17→20:52)
[2018-11-25] MEDS: DUONEB (A & A) INH SCH ×6 (03:20→23:23)
[2018-11-25] MEDS: PRECEDEX 200 MICROGM in NS 48 ML IV SCH (04:06)
[2018-11-25 04:36] LABS: ALLEN TEST YES; BLOOD TYPE ARTERIAL; HCO3-(ACT) 24.9 mmoll (20.0-26.0); METHB 1.3 % (0.0-1.5); O2(CT) 18.5 mL/dL (15.0-23.0); PCO2(98.6) 40 mmHg (35-45); PO2(98.6) 87 mmHg (60-100); SAMPLE BLOOD; THB 13.8 g/dL (11.5-17.4)
[2018-11-25 04:38] LABS: MODALITY BI PAP
[2018-11-25 05:42] LABS: BASO# 0.03 X1000 (0.0-0.2); BASO% 0.2 % (0.0-0.8); EOS# 0.37 X1000 (0.0-0.7); EOS% 2.9 % (0.0-10.0); HEMATOCRIT 39.2 % (42.0-52.0); HEMOGLOBIN 13.5 g/dL (14.0-18.0); IMM GRAN# 0.03 X1000 (0.0-0.04); IMM GRAN% 0.2 % (0.0-0.5); LYMPH# 1.54 X1000 (1.2-3.4); LYMPH% 12.2 % (20.5-51.1); MCH 30.8 PG (27-31); MCHC 34.4 g/dL (33-37); MCV 89.5 FL (81-99); MONO# 1.01 X1000 (0.11-0.59); MPV 10.1 FL (7.4-10.4); NEUT# 9.64 X1000 (1.4-6.5); NEUT% 76.5 % (42.2-75.2); PLT 120 X1000 (130-400); RBC 4.38 XMIL (4.7-6.1); RDW 12.2 % (11.5-14.5); WBC 12.62 X1000 (4.8-10.8)
[2018-11-25] MEDS: PROTONIX IV SCH (06:04)
[2018-11-25 06:05] LABS: AGAP 14; BUN 5 mg/dL (8-22); CALCIUM 8.6 mg/dL (8.8-10.2); CHLORIDE 104 mmol/L (98-107); COSMO 279; CREATININE 0.4 mg/dL (0.7-1.2); ESTIMATED GFR > 60; GLUCOSE 100 mg/dL (70-104); POTASSIUM 3.3 mmol/L (3.5-5.1); SODIUM 141 mmol/L (136-145); TCO2 23 mmol/L (25-35)
[2018-11-25] MEDS: HUMULIN R SUBQ SCH ×4 (06:05→21:01)
[2018-11-25] MEDS: MAXIPIME 1 GM in NS 50 ML IV SCH ×2 (06:21→18:05)
--- NOTE | 2018-11-25 07:25 | Diag Imaging Result Doc PS360 ---
EXAM: CHEST-1 VIEW HISTORY: SOB TECHNIQUE: Portable chest single view COMPARISON: 11/24/2018 FINDINGS: The endotracheal tube has been removed. Nasogastric tube overlies the esophagus and stomach. Poor inspiratory effort. Heart is enlarged. No consolidation. No pleural effusions identified. IMPRESSION: Cardiomegaly, but with decreased pulmonary edema. Electronically signed by Tien Farnsworth 11/25/2018 7:23 AM
--- NOTE | 2018-11-25 07:34 | PROGRESS NOTE ---
DATE: 11/25/2018 OBJECTIVE: Vital Signs: Temp is 98.4 degrees, pulse 57, respirations 23, blood pressure 121/73. HEENT: Pupils are equal and round. Lungs: Clear in all lung costa. Cardiovascular: Regular rhythm and rate without murmur or S3. Abdomen: Soft. Skin: Warm and dry. Urine output is 3000 mL. SUBJECTIVE: He is extubated. He is awake. NG tube in place. He says he is thirsty. He is asking for some sips of water and Sprite. ASSESSMENT AND PLAN: 1. Extubated yesterday. Presented with respiratory failure, presented with alcohol intoxication and withdrawal, episode of atrial fibrillation. 2. Atrial fibrillation. Appears in sinus rhythm at this time. Rate is controlled. Will do a swallow study. LABORATORY DATA: White count 12,620, hematocrit 39, platelet count 120,000. Electrolytes: Sodium 141, potassium 3.3, chloride 104, creatinine 0.4, BUN was 5, bicarb is 23. REVIEW OF ORDERS: On Lopressor 25 mg p.o. every 6 hours, cefepime 1 gram IV every 12 hours, Protonix 40 mg IV every 24 hours, Lovenox 120 mg subcutaneously every 12 hours, vancomycin 2 grams every 12 hours. We will try a swallow study today, see if we can start him on liquids, and see how he does as far as the alcohol withdrawals. Will supplement some potassium, and will check his electrolytes again and magnesium in the morning. cc: Andi Metz MD
[2018-11-25] MEDS: POTASSIUM CHLORIDE 20 MEQ/SWI 20 MEQ/100 ML IVPB IV SCH ×2 (08:34→10:45)
[2018-11-25] MEDS: VANCOMYCIN 2,000 MG in NS 500 ML IV SCH ×2 (08:34→20:52)
[2018-11-25] MEDS: ATIVAN IV PRN ×2 (11:13→15:44)
[2018-11-25] MEDS: HALL'S COUGH LOZENGE MT PRN (13:56)
[2018-11-25] MEDS: TYLENOL NG PRN (15:44)
[2018-11-25] MEDS: ULTRAM PO PRN (15:44)
--- NOTE | 2018-11-26 00:24 | CARDIOLOGY PROGRESS NOTE ---
DATE: 11/23/2018 SUBJECTIVE: Mr. Saleh is currently on the ventilator and sedated. Weaning trial was not successful this morning. OBJECTIVE: Vital signs: He is afebrile. Heart rate 62. His is currently in sinus rhythm. Blood pressure 131/78. General: In no acute distress. Cardiovascular: Regular rate and rhythm. I do not hear any obvious murmurs. He has no lower extremity edema. Chest: Exam is clear bilaterally. No increased work of breathing. Abdomen: Soft. Bowel sounds present. LABORATORY DATA: Sodium 140, potassium 3.3, BUN 8, creatinine 0.6. White count 9.8, hematocrit 39, platelet count 131. IMAGING: Chest x-ray this morning demonstrates slight improvement of pulmonary venous congestion. ASSESSMENT: Mr. Saleh is a 58-year-old gentleman who presented for atrial fibrillation. We are still pending his current echocardiogram results. He is on the ventilator. He seems cardiovascularly stable; he is in sinus rhythm. cc: Yoel Flores MD
[2018-11-26] MEDS: LOPRESSOR PO SCH ×4 (01:25→20:01)
[2018-11-26] MEDS: DUONEB (A & A) INH SCH ×6 (03:08→23:01)
[2018-11-26 04:38] LABS: ALLEN TEST YES; BE 5.1 mmoll (-3.0-3.0); BLOOD TYPE ARTERIAL; HCO3-(ACT) 28.9 mmoll (20.0-26.0); METHB 1.1 % (0.0-1.5); O2(CT) 17.1 mL/dL (15.0-23.0); O2HB 95.5 % (95.0-99.0); PCO2(98.6) 32 mmHg (35-45); PO2(98.6) 78 mmHg (60-100); SAMPLE BLOOD; SAO2 98.4 % (95.0-100.0); THB 12.7 g/dL (11.5-17.4); pH(98.6) 7.54 (7.35-7.45)
[2018-11-26 04:40] LABS: MODALITY CANNULA
[2018-11-26 04:55] LABS: BASO# 0.03 X1000 (0.0-0.2); BASO% 0.3 % (0.0-0.8); EOS% 4.5 % (0.0-10.0); HEMATOCRIT 36.6 % (42.0-52.0); HEMOGLOBIN 12.7 g/dL (14.0-18.0); IMM GRAN# 0.04 X1000 (0.0-0.04); IMM GRAN% 0.5 % (0.0-0.5); LYMPH# 1.51 X1000 (1.2-3.4); MCH 31.1 PG (27-31); MCHC 34.7 g/dL (33-37); MCV 89.5 FL (81-99); MONO# 0.99 X1000 (0.11-0.59); MONO% 11.2 % (1.7-9.3); MPV 9.7 FL (7.4-10.4); NEUT# 5.89 X1000 (1.4-6.5); NEUT% 66.5 % (42.2-75.2); PLT 127 X1000 (130-400); RBC 4.09 XMIL (4.7-6.1); RDW 12.1 % (11.5-14.5); WBC 8.86 X1000 (4.8-10.8)
[2018-11-26 05:50] LABS: AGAP 12; BUN 5 mg/dL (8-22); CALCIUM 8.6 mg/dL (8.8-10.2); CHLORIDE 101 mmol/L (98-107); COSMO 276; CREATININE 0.5 mg/dL (0.7-1.2); ESTIMATED GFR > 60; GLUCOSE 126 mg/dL (70-104); SODIUM 139 mmol/L (136-145); TCO2 26 mmol/L (25-35)
[2018-11-26] MEDS: HUMULIN R SUBQ SCH ×4 (06:15→20:09)
[2018-11-26] MEDS: PROTONIX IV SCH (06:20)
[2018-11-26] MEDS: MAXIPIME 1 GM in NS 50 ML IV SCH ×2 (06:20→18:16)
--- NOTE | 2018-11-26 06:44 | Diag Imaging Result Doc PS360 ---
CHEST-1 VIEW - 11/26/2018 INDICATION: SOB COMPARISON: 11/25/2018 FINDINGS: Nasogastric tube has been removed. Stable cardiomegaly and pulmonary vascular congestion. Stable patchy bilateral basilar atelectasis. No new or focal infiltrates. No large pleural effusion. IMPRESSION: Nasogastric tube removed. Otherwise no change from prior. Electronically signed by Marck Baum 11/26/2018 6:41 AM
[2018-11-26] MEDS: ASPIRIN PO SCH (08:27)
[2018-11-26] MEDS: LOVENOX SUBQ SCH (08:27)
[2018-11-26] MEDS: VANCOMYCIN 2,000 MG in NS 500 ML IV SCH ×2 (08:27→22:00)
[2018-11-26] MEDS ORDERED: MAGNESIUM SULFATE 2 GM/S.W.I. 2 GM/50 ML IVPB IV ONE (08:34)
[2018-11-26] MEDS: MAG-OX PO SCH ×2 (08:55→20:04)
[2018-11-26] MEDS: POTASSIUM CHLORIDE 20 MEQ/SWI 20 MEQ/100 ML IVPB IV SCH ×2 (09:14→11:39)
--- NOTE | 2018-11-26 10:16 | PROGRESS NOTE ---
DATE: 11/26/2018 SUBJECTIVE: Mr. Saleh is doing much better. He is awake and alert, and pleasant. NG tube is out. Extubated. OBJECTIVE: Temp 98.8 degrees, pulse 66, respirations 22, blood pressure 130/65.HEENT: Pupils are equal. No distended neck veins. Lungs: Clear anterolateral. No wheezing. Cardiovascular: Regular rhythm and rate without murmur or S3. Abdomen: Soft. LABORATORIES: Urine output is 2900 mL. Chest x-ray from this morning really no change. Stable cardiomegaly, pulmonary vascular congestion stable. Stable patchy bilateral bibasilar atelectasis. No new infiltrates. ASSESSMENT AND PLAN: 1. Alcohol withdrawal. Suspect he went through delirium tremens while he was on the ventilator. He is doing better. 2. Cardiology is following. He has a history of atrial fib and appears to be in sinus rhythm. 3. I am going to supplement his magnesium and his potassium. 4. Been in the bed for 6 days. We will get him up in a chair and try to initiate some physical therapy. He does have 1 on 1 observation. He is not expressing any suicide thoughts or ideation at this time. REVIEW OF ORDERS: He is on metoprolol 25 mg q.6 hours, aspirin 325 mg a day, Ativan 1 mg IV q.2 p.r.n. anxiety or withdrawal. He is on cefepime 1 g q.12 hours, Protonix 40 mg IV q.24 hours, tramadol 50 mg q.6 hours p.r.n., vancomycin 2 g IV q.12 h. cc: Andi Metz MD
[2018-11-26] MEDS: TYLENOL NG PRN (20:01)
[2018-11-26] MEDS: ULTRAM PO PRN (21:49)
--- NOTE | 2018-11-26 23:29 | PULMONOLOGY PROGRESS NOTE ---
DATE: 11/26/2018 SUBJECTIVE: The patient is awake and alert. He is taking some p.o. intake this morning. He is without specific complaint. He has no increased work of breathing. He is currently on nasal cannula. HEENT: Pupils are equal and reactive. Oropharynx appears clear. Neck: Is supple. Chest: Reveals good air entry bilaterally without wheezing or rhonchi. Mild basilar crackles. Cardiac: S1, S2. Abdomen: Obese and soft. Extremities: Reveal trace edema. LABORATORIES: Arterial blood gas reveals pH 7.54, pCO2 of 32, pO2 of 78. White blood count 8.86, hemoglobin 12.7, platelet count 127,000. Sputum culture reveals normal miguelina. IMPRESSION: A 58-year-old with acute hypoxemic respiratory failure, ongoing tobacco use/addiction, alcohol use with alcohol withdrawal syndrome/delirium tremens, morbid obesity. The patient is doing well off mechanical ventilation. PLAN: 1. Advance diet as tolerated. 2. Continue to wean oxygen as tolerated. 3. Encourage patient to discontinue tobacco use. 4. Encourage weight loss. cc: Torres Carrizales MD
[2018-11-27] MEDS: LOPRESSOR PO SCH ×4 (02:00→21:06)
[2018-11-27] MEDS: DUONEB (A & A) INH SCH ×6 (03:38→23:17)
[2018-11-27 04:44] LABS: ALLEN TEST YES; BE 6.1 mmoll (-3.0-3.0); BLOOD TYPE ARTERIAL; HCO3-(ACT) 29.7 mmoll (20.0-26.0); METHB 0.6 % (0.0-1.5); O2(CT) 17.1 mL/dL (15.0-23.0); O2HB 98.1 % (95.0-99.0); PCO2(98.6) 38 mmHg (35-45); PO2(98.6) 162 mmHg (60-100); SAMPLE BLOOD; SAO2 100.8 % (95.0-100.0); THB 12.2 g/dL (11.5-17.4)
[2018-11-27 04:45] LABS: MODALITY BI PAP
[2018-11-27 04:59] LABS: AGAP 10; BUN 5 mg/dL (8-22); CALCIUM 8.9 mg/dL (8.8-10.2); CHLORIDE 101 mmol/L (98-107); COSMO 278; CREATININE 0.4 mg/dL (0.7-1.2); ESTIMATED GFR > 60; GLUCOSE 127 mg/dL (70-104); POTASSIUM 3.4 mmol/L (3.5-5.1); SODIUM 140 mmol/L (136-145); TCO2 29 mmol/L (25-35)
[2018-11-27 05:05] LABS: BASO# 0.02 X1000 (0.0-0.2); BASO% 0.2 % (0.0-0.8); EOS# 0.54 X1000 (0.0-0.7); EOS% 6.3 % (0.0-10.0); HEMATOCRIT 36.2 % (42.0-52.0); HEMOGLOBIN 12.4 g/dL (14.0-18.0); IMM GRAN# 0.06 X1000 (0.0-0.04); IMM GRAN% 0.7 % (0.0-0.5); LYMPH# 1.91 X1000 (1.2-3.4); LYMPH% 22.4 % (20.5-51.1); MCH 31.1 PG (27-31); MCHC 34.3 g/dL (33-37); MCV 90.7 FL (81-99); MONO% 14.1 % (1.7-9.3); MPV 10.1 FL (7.4-10.4); NEUT% 56.3 % (42.2-75.2); PLT 125 X1000 (130-400); RBC 3.99 XMIL (4.7-6.1); RDW 12.1 % (11.5-14.5); WBC 8.53 X1000 (4.8-10.8)
[2018-11-27] MEDS: MAXIPIME 1 GM in NS 50 ML IV SCH ×2 (06:04→21:03)
[2018-11-27] MEDS: PROTONIX IV SCH (06:04)
[2018-11-27] MEDS: SODIUM CHLORIDE 0.9% INJ SCH (06:05)
[2018-11-27] MEDS: ULTRAM PO PRN ×3 (06:14→21:00)
[2018-11-27] MEDS: HUMULIN R SUBQ SCH ×4 (06:16→21:04)
--- NOTE | 2018-11-27 07:16 | Diag Imaging Result Doc PS360 ---
EXAM: CHEST-1 VIEW HISTORY: SOB TECHNIQUE: Chest single view COMPARISON: 11/26/2018 FINDINGS: Poor inspiratory effort. The heart is mildly enlarged. The vessels are mildly distended. There are no infiltrates. No effusion identified. IMPRESSION: Stable chest Electronically signed by Tien Farnsworth 11/27/2018 7:14 AM
[2018-11-27 07:33] LABS: LYMPHS 22 % (21-51); MONO 10 % (1-9); SEGS 68 % (42-75)
[2018-11-27] MEDS: MAG-OX PO SCH ×2 (07:59→21:02)
[2018-11-27] MEDS: LOVENOX SUBQ SCH (07:59)
[2018-11-27] MEDS: ASPIRIN PO SCH (07:59)
[2018-11-27] MEDS: VANCOMYCIN 2,000 MG in NS 500 ML IV SCH ×2 (10:00→21:03)
[2018-11-27] MEDS ORDERED: MAG-OX PO SCH (10:15)
[2018-11-27] MEDS: TYLENOL NG PRN (10:39)
[2018-11-27] MEDS: KLOR-CON PO SCH ×2 (10:39→21:01)
--- NOTE | 2018-11-27 10:48 | PROGRESS NOTE ---
DATE: 11/27/2018 SUBJECTIVE: He is sitting up in a chair. He is awake, alert, oriented x3. Appears comfortable, breathing comfortably. OBJECTIVE: Vital signs: Temperature 96.5 degrees, pulse 65, respirations 20, blood pressure 139/82. HEENT: Pupils are equal and round. Lungs: Clear in all lung costa. Cardiovascular: Regular rhythm and rate without murmur or S3. Abdomen: Soft. Skin: Warm and dry. Urine output 2400 mL. IMAGING: His chest x-ray this morning looks clear. No infiltrates. No effusion. ASSESSMENT AND PLAN: A 58-year-old with acute hypoxemic respiratory failure, ongoing tobacco use, alcohol use with alcohol withdrawal syndrome, delirium tremens which he has completed. History of morbid obesity. He has depression and would like to go to [place]. I think he is okay to go to the floor. He has 1-on-1 observation and so we will transfer him to the floor and look to see if we can get him to [place] on Thursday. cc: Andi Metz MD
--- NOTE | 2018-11-27 17:46 | PULMONOLOGY PROGRESS NOTE ---
DATE: 11/27/2018 SUBJECTIVE: The patient is awake, alert, and sitting in the bedside chair. He has a Mason catheter in place. He reports he is weak and needs to regain his strength. OBJECTIVE: Vital Signs: The patient has been afebrile for the last 24 hours. Blood pressure 122/70, heart rate 62, respiratory rate 23, oxygen saturation 98% on 5 liters per nasal cannula. HEENT: Pupils are equal and reactive. Oropharynx appears clear. Neck: Supple. Chest: Reveals scattered rhonchi bilaterally. Cardiac: S1 and S2. Abdomen: Obese and soft. Extremities: Reveal trace edema. LABORATORIES: Chest x-ray reveals mild cardiomegaly with mild vascular distention, but no evidence of acute infiltrates. Arterial blood gas reveals a pH 7.5, pCO2 of 38, PO2 of 162. There is no new microbiology data. IMPRESSION: A 58-year-old with: 1. Acute hypoxemic respiratory failure. 2. Morbid obesity with a BMI of 38. 3. Ongoing tobacco use/tobacco addiction with alcohol use and withdrawal syndrome. PLAN: 1. Advance diet as tolerated. 2. Continue to wean oxygen as tolerated. 3. Discontinue Mason catheter. 4. Initiate physical therapy. 5. Encourage weight loss. 6. Agree with plans for transfer to the floor. cc: Torres Carrizales MD
[2018-11-28] MEDS: LOPRESSOR PO SCH ×4 (01:28→20:22)
[2018-11-28] MEDS: DUONEB (A & A) INH SCH ×6 (02:59→23:30)
[2018-11-28] MEDS: HUMULIN R SUBQ SCH ×4 (06:08→20:23)
[2018-11-28] MEDS: MAXIPIME 1 GM in NS 50 ML IV SCH (06:31)
[2018-11-28 07:10] LABS: AGAP 8; BUN 4 mg/dL (8-22); CALCIUM 8.8 mg/dL (8.8-10.2); CHLORIDE 99 mmol/L (98-107); COSMO 277; CREATININE 0.5 mg/dL (0.7-1.2); ESTIMATED GFR > 60; GLUCOSE 112 mg/dL (70-104); POTASSIUM 3.6 mmol/L (3.5-5.1); SODIUM 140 mmol/L (136-145); TCO2 33 mmol/L (25-35)
[2018-11-28 07:16] LABS: BASO# 0.02 X1000 (0.0-0.2); BASO% 0.3 % (0.0-0.8); EOS# 0.31 X1000 (0.0-0.7); HEMATOCRIT 36.6 % (42.0-52.0); HEMOGLOBIN 12.3 g/dL (14.0-18.0); IMM GRAN# 0.03 X1000 (0.0-0.04); IMM GRAN% 0.5 % (0.0-0.5); LYMPH# 1.37 X1000 (1.2-3.4); LYMPH% 22.1 % (20.5-51.1); MCH 30.8 PG (27-31); MCHC 33.6 g/dL (33-37); MCV 91.5 FL (81-99); MONO# 1.05 X1000 (0.11-0.59); MONO% 16.9 % (1.7-9.3); MPV 8.8 FL (7.4-10.4); NEUT# 3.42 X1000 (1.4-6.5); NEUT% 55.2 % (42.2-75.2); PLT 169 X1000 (130-400); RDW 12.1 % (11.5-14.5)
[2018-11-28] MEDS: ULTRAM PO PRN ×2 (07:36→14:21)
[2018-11-28] MEDS: ASPIRIN PO SCH ×2 (07:36→08:11)
[2018-11-28] MEDS: KLOR-CON PO SCH ×3 (07:36→20:23)
[2018-11-28] MEDS: LOVENOX SUBQ SCH ×2 (07:37→08:11)
[2018-11-28] MEDS: MAG-OX PO SCH ×3 (07:37→20:22)
[2018-11-28] MEDS: PROTONIX PO SCH (07:40)
[2018-11-28] MEDS: VANCOMYCIN 2,000 MG in NS 500 ML IV SCH (09:42)
--- NOTE | 2018-11-28 13:46 | PROGRESS NOTE ---
DATE: 11/28/2018 SUBJECTIVE: He is comfortable. He is resting well. He is alert and oriented x3, eating. Bowels are moving. No complaints of pain. No confusion. OBJECTIVE: He remains afebrile, temperature 98.1 degrees, pulse 70, respirations 16, blood pressure 121/60. Pupils are equal and round. Lungs are clear in all lung costa.Cardiovascular: Regular rhythm and rate without murmur or S3. URINE OUTPUT: 1300 mL. ASSESSMENT AND PLAN: 1. Acute hypoxemic respiratory failure. Has been extubated, doing well. 2. Morbid obesity, Body Mass Index of 38. 3. Ongoing tobacco use and tobacco addiction. 4. Alcohol withdrawal. 5. He had had some suicidal thoughts and intentions and would like to go to [place] so we will see. He should be ready to go from medical standpoint tomorrow. 6. Cardiology is following. Has history of atrial fibrillation. He is in sinus rhythm at the present time. Rate is controlled. We have supplemented magnesium and potassium. 7. Diabetes mellitus. Blood sugars under good control with the last 3 numbers 112, 112, and 116. cc: Andi Metz MD
[2018-11-28] MEDS ORDERED: LASIX IV ONE (14:49)
--- NOTE | 2018-11-28 15:05 | PULMONOLOGY PROGRESS NOTE ---
DATE: 11/28/2018 SUBJECTIVE: The patient is awake, alert and conversant. He reports he did not sleep well due to blood draws and vital signs. He is without specific complaints today. OBJECTIVE: Vital Signs: Maximum temperature in the last 24 hours 100.7 degrees, current temperature 98.1 degrees, blood pressure 121/60, heart rate 70, respiratory rate 21, oxygen saturation 93% on 2 L per nasal cannula. HEENT: Pupils are equal and reactive. Oropharynx is clear. Neck: Supple. Chest: Reveals good air entry bilaterally without wheezing or rhonchi. Cardiac: S1-S2 . Abdomen: Soft and obese. Extremities: Without edema. LABORATORIES: White blood count 140, potassium 3.6, chloride 99, bicarbonate 33, BUN 4, creatinine 0.5. White blood count 6.2, hemoglobin 12.3, platelet count 169,000. IMPRESSION: 1. A 58-year-old with acute hypoxemic respiratory failure. 2. Morbid obesity. 3. Ongoing tobacco use/addiction. 4. Alcohol use with withdrawal syndrome. PLAN: 1. Continue bronchodilators. 2. Wean oxygen as tolerated. 3. Initiate physical therapy. 4. Encourage weight loss. 5. Recommend smoking cessation and alcohol cessation. 6. [facility] evaluation anticipated as outlined by Dr. Metz. The patient is acceptable for transfer from a pulmonary standpoint. cc: Torres Carrizales MD
[2018-11-29] MEDS: LOPRESSOR PO SCH ×4 (01:49→23:57)
[2018-11-29] MEDS: DUONEB (A & A) INH SCH ×6 (03:25→23:50)
[2018-11-29] MEDS: PROTONIX PO SCH (06:09)
[2018-11-29] MEDS: HUMULIN R SUBQ SCH ×4 (06:41→23:29)
[2018-11-29 06:58] LABS: BASO# 0.04 X1000 (0.0-0.2); BASO% 0.4 % (0.0-0.8); EOS# 0.32 X1000 (0.0-0.7); EOS% 3.3 % (0.0-10.0); HEMATOCRIT 39.7 % (42.0-52.0); HEMOGLOBIN 13.3 g/dL (14.0-18.0); IMM GRAN# 0.06 X1000 (0.0-0.04); IMM GRAN% 0.6 % (0.0-0.5); LYMPH# 2.01 X1000 (1.2-3.4); LYMPH% 20.7 % (20.5-51.1); MCH 30.6 PG (27-31); MCHC 33.5 g/dL (33-37); MCV 91.5 FL (81-99); MONO# 1.84 X1000 (0.11-0.59); MONO% 18.9 % (1.7-9.3); MPV 8.8 FL (7.4-10.4); NEUT# 5.45 X1000 (1.4-6.5); NEUT% 56.1 % (42.2-75.2); PLT 219 X1000 (130-400); RBC 4.34 XMIL (4.7-6.1); RDW 12.3 % (11.5-14.5); WBC 9.72 X1000 (4.8-10.8)
[2018-11-29 07:19] LABS: AGAP 11; BUN 8 mg/dL (8-22); CALCIUM 9.2 mg/dL (8.8-10.2); CHLORIDE 93 mmol/L (98-107); COSMO 267; CREATININE 0.6 mg/dL (0.7-1.2); ESTIMATED GFR > 60; GLUCOSE 107 mg/dL (70-104); POTASSIUM 3.9 mmol/L (3.5-5.1); SODIUM 134 mmol/L (136-145); TCO2 30 mmol/L (25-35)
--- NOTE | 2018-11-29 07:33 | Diag Imaging Result Doc PS360 ---
EXAM: CHEST-2 VIEWS INDICATION: Resp. Failure TECHNIQUE: 3 views COMPARISON: 11/27/2018 FINDINGS: There appears to be a trace effusion at the left lung base and mild left basilar atelectasis and/or infiltrate. No other new consolidation is identified. Cardiac silhouette is stable. IMPRESSION: Development of a trace left pleural effusion with adjacent mild atelectasis and/or infiltrate. Electronically signed by Reynaldo Bee 11/29/2018 7:31 AM
[2018-11-29] MEDS: ASPIRIN PO SCH (09:24)
[2018-11-29] MEDS: MAG-OX PO SCH ×2 (09:24→23:57)
[2018-11-29] MEDS: LOVENOX SUBQ SCH (09:25)
[2018-11-29] MEDS: KLOR-CON PO SCH ×2 (09:25→23:57)
--- NOTE | 2018-11-29 16:17 | PROGRESS NOTE ---
DATE: 11/29/2018 SUBJECTIVE: Mr. Saleh is doing better overall. He feels kind of weak and he has had some burning when he urinates, so we will check a urinalysis. Suspect this may be from his Mason catheter. Waiting on [facility] to evaluate. He would like to go somewhere because of his depression and suicidal thoughts that brought him to the hospital. OBJECTIVE: Vital signs: Temp 98.1 degrees, pulse 68, respirations 16, blood pressure 100/51. O2 saturation is 92%. HEENT: Pupils are equal and round. Lungs: Clear in all lung costa. Cardiovascular: Regular rhythm and rate without murmur or S3. Abdomen: Soft. Skin: Warm and dry. IMAGING: Chest x-ray from this morning, development of trace left pleural effusion and some mild atelectasis. ASSESSMENT AND PLAN: 1. This is a 68-year-old with acute hypoxemic respiratory failure. Continue bronchodilators. Wean oxygen as tolerated. Initiate physical therapy. 2. History of alcohol for many years. Has gone through alcohol withdrawals and suspect he went through delirium tremens while he was on the ventilator. 3. Depression and some suicidal thoughts that brought him to the hospital. He would like to go to a psych facility for further care. We will have [facility] evaluate. 4. Obesity. Encourage weight loss. 5. Nutrition. P.o. intake seems to be good. 6. He has had some dysuria, so we will check a UA and send urine for culture. This may just be irritation from the catheter. REVIEW OF HIS ORDERS: I do not see any change at this point. cc: Andi Metz MD
[2018-11-29 20:42] LABS: URINE SOURCE CLEAN CATCH
[2018-11-29 20:57] LABS: UR EPITHELIAL CELLS <10 /HPF (<10); URINE BACTERIA NEGATIVE /HPF; URINE RBC TNTC /HPF (<10); URINE WBC <10 /HPF (<10)
[2018-11-29 21:02] LABS: BILIRUBIN URINE NEGATIVE (NEGATIVE); BLOOD URINE LARGE (NEGATIVE); COLOR BROWN; GLUCOSE URINE NEGATIVE (NEGATIVE); KETONE URINE NEGATIVE (NEGATIVE); LEUKOCYTES URINE NEGATIVE (NEGATIVE); NITRITE URINE NEGATIVE (NEGATIVE); PH URINE 8.5; PROTEIN URINE 50 mg/dL (NEGATIVE); SP GRAVITY URINE 1.012; TURBIDITY URINE TURBID (CLEAR); UROBILINOGEN URINE NORMAL (NORMAL)
--- NOTE | 2018-11-29 21:17 | PULMONOLOGY PROGRESS NOTE ---
DATE: 11/29/2018 SUBJECTIVE: The patient is awake, alert, and conversant. He continues to have a sitter in his room due to suicidal ideation. He is without specific complaints today. OBJECTIVE: Vital Signs: The patient has been afebrile for the last 24 hours. BP 100/51, heart rate 65, respiratory rate 18, oxygen saturation 92% on nasal cannula . HEENT: Pupils are equal and reactive. Oropharynx appears clear. Neck: Supple. Chest: Reveals occasional rhonchi bilaterally. Cardiac: S1-S2. Abdomen: Obese and soft. Extremities: Reveal trace edema. LABORATORIES: Chest x-ray reveals mild atelectasis at the left base. IMPRESSION: 58-year-old with 1. Acute hypoxemic respiratory failure with prior intubation and mechanical ventilation during this hospitalization. 2. Morbid obesity. 3. Ongoing tobacco addiction/use. 4. Alcohol withdrawal syndrome with suicidal ideation. PLAN: 1. Continue bronchodilators. 2. Hold antibiotics unless he develops fevers, leukocytosis or progressive radiographic changes. 3. Continue physical therapy. 4. Encourage weight loss and smoking cessation. 5. Encourage alcohol avoidance. 6. Await [facility] evaluation. cc: Torres Carrizales MD
[2018-11-30] MEDS: ULTRAM PO PRN ×2 (00:12→23:19)
[2018-11-30] MEDS: DUONEB (A & A) INH SCH ×5 (03:40→19:24)
[2018-11-30] MEDS: LOPRESSOR PO SCH ×4 (05:05→23:03)
[2018-11-30] MEDS: HUMULIN R SUBQ SCH ×4 (06:07→22:08)
[2018-11-30] MEDS: PROTONIX PO SCH (06:34)
[2018-11-30 07:36] LABS: HEMATOCRIT 38.7 % (42.0-52.0); MCH 30.7 PG (27-31); MCHC 33.6 g/dL (33-37); MCV 91.3 FL (81-99); RBC 4.24 XMIL (4.7-6.1); WBC 10.21 X1000 (4.8-10.8)
[2018-11-30 07:37] LABS: BASO# 0.03 X1000 (0.0-0.2); BASO% 0.3 % (0.0-0.8); EOS# 0.26 X1000 (0.0-0.7); EOS% 2.5 % (0.0-10.0); IMM GRAN# 0.06 X1000 (0.0-0.04); IMM GRAN% 0.6 % (0.0-0.5); LYMPH# 1.93 X1000 (1.2-3.4); LYMPH% 18.9 % (20.5-51.1); MONO# 1.73 X1000 (0.11-0.59); MONO% 16.9 % (1.7-9.3); MPV 9.2 FL (7.4-10.4); NEUT% 60.8 % (42.2-75.2); PLT 236 X1000 (130-400)
[2018-11-30 07:49] LABS: AGAP 10; BUN 9 mg/dL (8-22); CALCIUM 9.5 mg/dL (8.8-10.2); CHLORIDE 96 mmol/L (98-107); COSMO 269; CREATININE 0.5 mg/dL (0.7-1.2); ESTIMATED GFR > 60; GLUCOSE 104 mg/dL (70-104); POTASSIUM 4.2 mmol/L (3.5-5.1); SODIUM 135 mmol/L (136-145); TCO2 29 mmol/L (25-35)
[2018-11-30] MEDS: KLOR-CON PO SCH ×2 (08:45→23:03)
[2018-11-30] MEDS: ASPIRIN PO SCH (08:45)
[2018-11-30] MEDS: MAG-OX PO SCH ×2 (08:45→23:03)
[2018-11-30] MEDS: LOVENOX SUBQ SCH (08:46)
--- NOTE | 2018-11-30 13:06 | PROGRESS NOTE ---
DATE: 11/30/2018 SUBJECTIVE: The patient feels better. He is awake, alert, and conversant. He continues to have a sitter at the bedside due to suicidal ideation. No acute events overnight. Pending [facility] evaluation. OBJECTIVE: Vital Signs: Temperature 97.6 degrees, pulse 63, respiratory rate 20, blood pressure 117/66, and oxygen saturation 99 on 2 L of nasal cannula. HEENT: Head normocephalic. No trauma. PERRLA. Neck: Supple. No JVD. No masses. Central trachea. Chest: Clear to auscultation. There is some rhonchi bilaterally mostly at the bases occasionally. Cardiovascular: RRR. Abdomen: Soft, nontender, and nondistended. No hepatosplenomegaly. Extremities: 1+ lower extremity edema. No clubbing. No cyanosis. Neurological: This patient is alert. He is oriented. He moves all 4 extremities. LABORATORY: WBC 10.2, hemoglobin 13, hematocrit 38.7, and platelets 236,000. Sodium 135, potassium 4.2, chloride 96, bicarbonate 29, BUN 9, creatinine 0.5, glucose 104, and calcium 9.5. ASSESSMENT AND PLAN: 1. Acute hypoxemic respiratory failure, status post intubation and mechanical ventilation, resolved. We will continue with oxygen supplementation. Continue to monitor this patient closely. He is not complaining of shortness of breath. Continue breathing treatment. Pulmonary Department on board. 2. Alcohol withdrawal syndrome with suicidal ideation. As per report, probably he had some alcohol with alcohol withdrawal and/or delirium tremens while he was on the ventilator, now he seems to be more stable. No signs or symptoms of withdrawal. 3. Depression, also associated with some suicidal thoughts that brought him to the hospital. [facility] has been consulted. 4. Obesity. Diet and exercise has been discussed. 5. Nutrition, p.o. intake seems to be good. 6. Dysuria, likely secondary to his Mason catheter. No nitrates or white blood cells in the urine. cc: Maxim Bailey MD
[2018-12-01] MEDS: DUONEB (A & A) INH SCH ×6 (00:07→19:05)
[2018-12-01] MEDS: LOPRESSOR PO SCH ×4 (01:04→22:20)
[2018-12-01] MEDS: HUMULIN R SUBQ SCH ×4 (06:46→22:21)
[2018-12-01] MEDS: PROTONIX PO SCH (06:51)
[2018-12-01] MEDS: ASPIRIN PO SCH (08:55)
[2018-12-01] MEDS: MAG-OX PO SCH ×2 (08:55→22:21)
[2018-12-01] MEDS: LOVENOX SUBQ SCH (08:56)
[2018-12-01] MEDS: KLOR-CON PO SCH ×2 (08:56→22:21)
--- NOTE | 2018-12-01 09:51 | PROGRESS NOTE ---
DATE: 12/01/2018 SUBJECTIVE: The patient feels better. He is awake. He is sitting in bed and eating. He has been evaluated by [facility] and they have recommended inpatient treatment in a psychiatric center. OBJECTIVE: VITAL SIGNS: Temperature 98.2 degrees, pulse 63, respiratory rate 17, blood pressure 131/70, oxygen saturation 95 on room air. HEENT: Head normocephalic. No trauma. PERRL. NECK: Supple. No JVD. No masses. Central trachea. CHEST: Clear to auscultation. There are some scattered rhonchi bilaterally, mostly at the bases. CARDIOVASCULAR: RRR. ABDOMEN: Soft, nontender, nondistended. No hepatosplenomegaly. EXTREMITIES: 1+ lower extremity edema. No clubbing. No cyanosis. NEUROLOGICAL: The patient is alert and oriented x3. He moves all 4 extremities and following commands. LABORATORY DATA: No lab work done today. ASSESSMENT AND PLAN: 1. Acute hypoxemic respiratory failure, status post intubation and mechanical ventilation, resolved. We will continue with oxygen as needed. Continue to monitor this patient closely. He is not complaining of shortness of breath today. Continue breathing treatment. Pulmonary Department on board. 2. Alcohol withdrawal symptoms, resolved. As per report, probably he had some alcohol withdrawal and delirium tremors while he was on the ventilator. Now he seems to be stable. No signs or symptoms of withdrawal. 3. Suicidal ideation. Evaluated already by [facility] Reece which recommended to transfer this patient to a psychiatric facility. 4. Depression, as above. 5. Alcohol abuse. This patient has been advised against alcohol use. I will continue with alcohol cessation education. 6. Obesity. Diet and exercise has been discussed. 7. Nutrition. Continue with same management. 8. Dysuria, resolved. Likely secondary to the Mason catheter. cc: Maxim Bailey MD
[2018-12-01 10:57] LABS: BASO# 0.04 X1000 (0.0-0.2); BASO% 0.4 % (0.0-0.8); EOS# 0.32 X1000 (0.0-0.7); EOS% 3.3 % (0.0-10.0); HEMATOCRIT 39.7 % (42.0-52.0); HEMOGLOBIN 13.2 g/dL (14.0-18.0); IMM GRAN# 0.08 X1000 (0.0-0.04); IMM GRAN% 0.8 % (0.0-0.5); LYMPH# 1.92 X1000 (1.2-3.4); MCH 30.5 PG (27-31); MCHC 33.2 g/dL (33-37); MCV 91.7 FL (81-99); MONO# 1.38 X1000 (0.11-0.59); MONO% 14.4 % (1.7-9.3); MPV 9.1 FL (7.4-10.4); NEUT# 5.87 X1000 (1.4-6.5); NEUT% 61.1 % (42.2-75.2); PLT 281 X1000 (130-400); RBC 4.33 XMIL (4.7-6.1); RDW 12.1 % (11.5-14.5); WBC 9.61 X1000 (4.8-10.8)
[2018-12-01 11:21] LABS: AGAP 10; BUN 11 mg/dL (8-22); CALCIUM 9.1 mg/dL (8.8-10.2); CHLORIDE 96 mmol/L (98-107); COSMO 267; CREATININE 0.7 mg/dL (0.7-1.2); ESTIMATED GFR > 60; GLUCOSE 115 mg/dL (70-104); POTASSIUM 4.6 mmol/L (3.5-5.1); SODIUM 133 mmol/L (136-145); TCO2 27 mmol/L (25-35)
--- NOTE | 2018-12-01 22:19 | PULMONOLOGY PROGRESS NOTE ---
DATE: 12/01/2018 SUBJECTIVE: The patient is sleeping but arousable to alert. He is without specific complaints. He is waiting on a bed at a psychiatric facility. He denies cough or sputum production. OBJECTIVE: The patient has been afebrile for the last 24 hours. Blood pressure 109/66, heart rate 56, respiratory rate 16, oxygen saturation 97% on 2 L per nasal cannula.HEENT: Pupils are equal and reactive. Oropharynx appears clear. Neck is supple. Chest reveals good air entry bilaterally, without wheezing or rhonchi. Cardiac exam: S1, S2. Abdomen is soft. Extremities are without edema. LABORATORY DATA: White blood count 9.6, hemoglobin 13.2, platelet count 281,000. Sodium 133, potassium 4.6, chloride 96, bicarbonate 27, BUN 11, creatinine 0.7. IMPRESSION: 1. A 58-year-old with hypoxemic respiratory failure. 2. Morbid obesity. 3. Tobacco addiction/use. 4. Alcohol withdrawal syndrome. 5. Suicidal ideation. PLAN: 1. Continue bronchodilators. 2. Follow up chest x-ray tomorrow for the mild atelectasis versus trace effusion at the left base, seen on prior chest x-ray. 3. Anticipate transfer to an inpatient psychiatric facility. cc: Torres Carrizales MD
[2018-12-02] MEDS: LOPRESSOR PO SCH ×4 (01:44→23:08)
[2018-12-02] MEDS: DUONEB (A & A) INH SCH ×7 (01:49→23:10)
[2018-12-02] MEDS: TYLENOL NG PRN ×2 (05:59→23:09)
[2018-12-02] MEDS: PROTONIX PO SCH (06:00)
[2018-12-02] MEDS: HUMULIN R SUBQ SCH ×4 (06:11→22:49)
--- NOTE | 2018-12-02 07:32 | Diag Imaging Result Doc PS360 ---
EXAM: CHEST-2 VIEWS INDICATION: abnormal exam TECHNIQUE: 2 views COMPARISON: 11/29/2018 FINDINGS: The vague left lower lung zone infiltrate is approximately stable. This probably represents pneumonia. However, the trace left effusion has improved to gross resolution. No new consolidation is identified. Cardiac silhouette is stable. IMPRESSION: Gross resolution of the small pleural effusion at the left lung base but stable focal infiltrate in the left lower lung zone. Electronically signed by Reynaldo Bee 12/02/2018 7:29 AM
[2018-12-02] MEDS: ASPIRIN PO SCH (08:29)
[2018-12-02] MEDS: LOVENOX SUBQ SCH (08:29)
[2018-12-02] MEDS: KLOR-CON PO SCH ×2 (08:29→23:09)
[2018-12-02] MEDS: MAG-OX PO SCH ×2 (08:29→23:09)
--- NOTE | 2018-12-02 11:38 | PROGRESS NOTE ---
DATE: 12/02/2018 SUBJECTIVE: No acute events overnight. X-ray looks better. The patient has been evaluated by [facility], and they have recommended inpatient treatment in a psychiatric center, pending placement. OBJECTIVE: Vital Signs: Temperature 97.7 degrees, pulse 70, respiratory rate 16, blood pressure 131/61, and oxygen saturation 100% on room air. HEENT: Head normocephalic. No trauma. PERRLA. Neck: Supple. No JVD. No masses. Central trachea. Chest: Clear to auscultation. Scattered rhonchi bilaterally mostly at the bases. Abdomen: Soft, nontender, and nondistended. No hepatosplenomegaly. Extremities: Trace edema. No clubbing. No cyanosis. Neurological: The patient is alert. He is oriented. He moves all 4 extremities. LABORATORY: No lab work done today. Glucose level 143. ASSESSMENT AND PLAN: 1. Acute hypoxemic respiratory failure, status post intubation on mechanical ventilation, resolved. We will continue with oxygen as needed. Continue to monitor this patient closely. He is not complaining of shortness of breath. X-ray looks better. Pulmonary Department on board. 2. Alcohol withdrawal symptoms, resolved. As per report, probably he had some alcohol withdrawal and/or delirium tremens while he was on the ventilator. Now, he seems to be stable. No signs or symptoms of withdrawal. 3. Suicidal ideation. Evaluated by [facility] Re[facility] which recommended to transfer this patient to a psychiatric facility. 4. Depression as above. 5. Alcohol abuse. This patient has been highly advised against alcohol use. I will continue with daily cessation education. 6. Obesity. Diet and exercise has been discussed before. 7. Nutrition. Continue with same management. 8. Dysuria, resolved, likely secondary to Mason catheter. cc: Maxim Bailey MD
--- NOTE | 2018-12-02 21:11 | PULMONOLOGY PROGRESS NOTE ---
DATE: 12/02/2018 SUBJECTIVE: The patient is awake, alert, and conversant. He reports he has a dry cough. He has no sputum production. He was without shortness of breath. OBJECTIVE: Vital Signs: The patient has been afebrile for the last 24 hours. Blood pressure 126/63, heart rate 54, respiratory rate 20, oxygen saturation 97% on room air. HEENT: Pupils are equal and reactive. Oropharynx appears clear. Neck: Is supple. Chest: Reveals good air entry bilaterally without wheezing or rhonchi. Cardiac exam: S1-S2. Abdomen: Is soft and obese. Extremities: Without edema. LABORATORIES: Chest x-ray reveals resolution of effusion and infiltrate at the left base with nonspecific density in the left lower lung zone. IMPRESSION: A 58-year-old with: 1. Hypoxemic respiratory failure. 2. Status post intubation and extubation. 3. Tobacco addiction/use. 4. Suicidal ideation. 5. Alcohol withdrawal syndrome. SUBJECTIVE: The patient continues to improve. He has minor changes on chest x-ray. He had a CT scan of the thorax earlier this hospitalization, which reveals some consolidation in both lung bases. Current changes on x-ray most likely represent a residual parenchymal process. Would recommend continued observation of this process with a followup chest x-ray in 4 to 6 weeks. RECOMMENDATION: 1. Okay to transfer to a psych facility from a pulmonary standpoint. 2. Continue bronchial dilators. 3. Follow up chest x-ray in 4 to 6 weeks. cc: Torres Carrizales MD
[2018-12-03] MEDS: LOPRESSOR PO SCH ×2 (02:17→13:52)
[2018-12-03] MEDS: DUONEB (A & A) INH SCH ×6 (05:21→23:30)
[2018-12-03] MEDS: HUMULIN R SUBQ SCH ×4 (06:10→21:03)
[2018-12-03] MEDS: PROTONIX PO SCH (06:10)
[2018-12-03] MEDS: TYLENOL NG PRN (10:03)
[2018-12-03] MEDS: KLOR-CON PO SCH ×2 (10:06→21:03)
[2018-12-03] MEDS: MAG-OX PO SCH ×2 (10:06→21:03)
[2018-12-03] MEDS: LOVENOX SUBQ SCH (10:07)
[2018-12-03] MEDS: ASPIRIN PO SCH (10:07)
[2018-12-03] MEDS: TOPROL XL PO SCH (13:53)
--- NOTE | 2018-12-03 15:00 | PROGRESS NOTE ---
DATE: 12/03/2018 SUBJECTIVE: No acute events overnight. The patient has been evaluated by [facility]. They have recommended inpatient treatment in a psychiatric center, pending placement. OBJECTIVE: Vital Signs: Temperature 97.2 degrees, pulse 67, respiratory rate 16, blood pressure 127/51, oxygen saturation 98 on room air. HEENT: Head normocephalic, no trauma. PERRLA. Neck: Supple. No JVD. No masses. Central trachea. Chest: Clear to auscultation. Some scattered rhonchi bilaterally at the bases. Abdomen: Soft, nontender, nondistended. No hepatosplenomegaly. Extremities: Trace edema. No clubbing. No cyanosis. Neurological examination: Alert and oriented x3. No focal deficits. LABORATORY: Glucose 132. ASSESSMENT AND PLAN: 1. Acute hypoxemic respiratory failure, status post intubation and mechanical ventilation, resolved. We will continue with oxygen as needed. Continue to monitor this patient closely. He is not complaining of shortness of breath. X-ray looks better. Pulmonary Department on board. 2. Alcohol withdrawal symptoms, resolved as per report. Likely this patient had alcohol withdrawal and/or delirium tremens while he was on the ventilator, now he seems to be stable. No signs or symptoms of withdrawal. 3. Suicidal ideation, evaluated by [facility] Re[facility], which recommended to transfer this patient to a psychiatric facility. 4. Depression and history of bipolar disorder. Aware. 5. Alcohol abuse. This patient has been highly advised against alcohol use. I will continue with daily cessation education. 6. Obesity. Diet and exercise has been discussed. 7. Nutrition: Continue with same management. 8. Dysuria, resolved, likely due to his Mason catheter. 9. Atrial fibrillation. This patient's CHADS-Vasc score is 1, so he will be treated only with aspirin. I will stop the beta aníbal every 6 hours, and I will start this patient on Toprol- XL once a day. cc: Maxim Bailey MD
[2018-12-03] MEDS ORDERED: LOPRESSOR PO SCH (21:00)
--- NOTE | 2018-12-03 21:05 | PULMONOLOGY PROGRESS NOTE ---
DATE: 12/03/2018 SUBJECTIVE: The patient is awake, alert and conversant. He denies cough. He denies sputum production. He is not short of breath. OBJECTIVE: Vital Signs: The patient has been afebrile for the last 24 hours. Blood pressure 127/51, heart rate 67, respiratory rate 16. Oxygen saturation 98% on 2 L per nasal cannula. HEENT: Pupils are equal and reactive. Oropharynx appears clear. Neck: Supple. Chest: Chest reveals mild prolonged expiratory phase with crackles in the bases. Cardiac: S1, S2. Abdomen: Obese and soft. Extremities: Trace edema. LABORATORIES: No new chemistries or CBC today. IMPRESSION: 1. A 58-year-old with chronic hypoxemic respiratory failure, likely related to obesity and prior tobacco use. 2. Obesity. 3. Tobacco addiction/use. 4. Alcohol withdrawals. 5. Suicidal ideation. 6. Mild abnormality on chest x-ray with a CT scan earlier this year revealing no lung masses. RECOMMENDATIONS: 1. Continue oxygen therapy. He will likely need oxygen mcc. 2. Encourage exercise and weight loss. 3. Recommend smoking cessation. 4. Recommend followup chest x-ray in 4-6 weeks. 5. Agree with transfer to psych facility when bed available. cc: Torres Carrizales MD
[2018-12-04 00:30] LABS: ALLEN TEST YES; BE 2.7 mmoll (-3.0-3.0); BLOOD TYPE ARTERIAL; HCO3-(ACT) 26.9 mmoll (20.0-26.0); METHB 1.4 % (0.0-1.5); O2(CT) 18.5 mL/dL (15.0-23.0); O2HB 92.6 % (95.0-99.0); PCO2(98.6) 36 mmHg (35-45); PO2(98.6) 66 mmHg (60-100); SAMPLE BLOOD; SAO2 95.6 % (95.0-100.0); THB 14.2 g/dL (11.5-17.4); pH(98.6) 7.47 (7.35-7.45)
[2018-12-04 00:32] LABS: MODALITY ROOM AIR
[2018-12-04 00:48] LABS: BASO# 0.06 X1000 (0.0-0.2); BASO% 0.7 % (0.0-0.8); EOS# 0.21 X1000 (0.0-0.7); EOS% 2.3 % (0.0-10.0); HEMATOCRIT 42.3 % (42.0-52.0); HEMOGLOBIN 14.1 g/dL (14.0-18.0); IMM GRAN# 0.06 X1000 (0.0-0.04); IMM GRAN% 0.7 % (0.0-0.5); MCH 29.9 PG (27-31); MCHC 33.3 g/dL (33-37); MCV 89.6 FL (81-99); MONO# 0.91 X1000 (0.11-0.59); MPV 8.8 FL (7.4-10.4); NEUT# 5.79 X1000 (1.4-6.5); NEUT% 63.3 % (42.2-75.2); PLT 370 X1000 (130-400); RBC 4.72 XMIL (4.7-6.1); WBC 9.13 X1000 (4.8-10.8)
[2018-12-04 01:14] LABS: AGAP 13; ALB/GLOB RATIO 0.8; ALBUMIN 3.4 g/dL (3.5-5.0); ALKALINE PHOSPHATASE 63 U/L (32-122); BUN 9 mg/dL (8-22); CALCIUM 9.1 mg/dL (8.8-10.2); CHLORIDE 97 mmol/L (98-107); COSMO 271; CREATININE 0.6 mg/dL (0.7-1.2); ESTIMATED GFR > 60; GLUCOSE 130 mg/dL (70-104); GOT 18 U/L (10-34); GPT 24 U/L (10-44); MAGNESIUM 2.2 mg/dL (1.5-2.7); POTASSIUM 4.8 mmol/L (3.5-5.1); SODIUM 135 mmol/L (136-145); TCO2 25 mmol/L (25-35); TOTAL BILIRUBIN 0.27 mg/dL (0.20-1.00); TOTAL PROTEIN 7.6 g/dL (6.3-8.3)
[2018-12-04] MEDS: DUONEB (A & A) INH SCH ×6 (05:16→23:10)
[2018-12-04] MEDS: HUMULIN R SUBQ SCH ×3 (06:12→22:42)
[2018-12-04] MEDS: PROTONIX PO SCH (06:28)
[2018-12-04] MEDS: MAG-OX PO SCH ×2 (11:46→22:40)
[2018-12-04] MEDS: KLOR-CON PO SCH ×2 (11:46→22:39)
[2018-12-04] MEDS: TOPROL XL PO SCH (11:46)
[2018-12-04] MEDS: ASPIRIN PO SCH (11:46)
[2018-12-04] MEDS: LOVENOX SUBQ SCH (11:47)
--- NOTE | 2018-12-04 14:02 | PROGRESS NOTE ---
DATE: 12/04/2018 Mr. Saleh has been in the hospital since 11/20/2018. Initially got admitted because of some because of alcohol intoxication and alcohol related disease. He was also found to be acutely hypoxemic and had to be intubated the day after admission. During the hospital course, he seems to have been fairly stabilized. He is no more using oxygen. His respiratory status has significantly improved. Mr. Saleh has also history of paranoid schizophrenia and per the H and P he drank that much to kill himself and I also understand during the hospital course, he has occasionally expressed that he wants to hurt himself every now and then. The patient has been evaluated by [facility] and they have recommended an inpatient psychiatry unit and health social work professor is working on that. However, Mr. Saleh has been agitating, wanting to leave against medical advice. Despite he is medically stable, we still think that he has a significant mental illness and that his trait to hurt himself is real and he still needs to be in hospital and get him to where he can get the adequate help. I have explained this extensively to Mr. Saleh that it is more for his health for his safety than anything else and I think it is the same thing that has been echoed to him by the other providers. He seems to understand this and he has voiced his readiness to stay until he gets to a mental facility where he will be able to get adequate help. I also do think that now that he seems to be very stable from alcohol related issues, it will probably be reasonable to reconsult [facility] maybe on Thursday for reevaluation if we still do not get any other facility for him to go. In his room were 2 nurse store administrative assistant students who were 1 and 1 observation with Mr. Saleh. Mr. Saleh's demeanor is calm. His is very attentive. His seems to be reasonable. cc: MD Maxim Streeter MD
--- NOTE | 2018-12-04 14:04 | PROGRESS NOTE ---
DATE: 12/04/2018 SUBJECTIVE: No acute events overnight. This patient has been evaluated by [facility] a few days ago. They have recommended inpatient treatment in a psychiatric center. We have been requesting evaluation by multiple facilities but they have declined the patient, we will continue to monitor. OBJECTIVE: Vital Signs: Temperature 98 degrees, pulse 54, respiratory rate 16, blood pressure 96/72, oxygen saturation 95% on room air. HEENT: Head normocephalic. No trauma. PERRLA. Neck: Supple. No JVD. No masses. Central trachea. Chest: Clear to auscultation. Some scattered rhonchi bilaterally at the bases. Abdomen: Soft, nontender, nondistended. No hepatosplenomegaly. Extremities: Trace edema. No clubbing, no cyanosis. Neurological: This patient is alert, he is oriented. No focal deficits. LABORATORY DATA: WBC 9.1, hemoglobin 14.1, hematocrit 42.3, platelets 370,000. Sodium 135, potassium 4.8, chloride 97, bicarbonate 25, BUN 9, creatinine 0.6, glucose 130, calcium 9.1. AST 18, ALT 24, alkaline phosphatase 63. Albumin 3.4. ASSESSMENT AND PLAN: 1. Acute hypoxemic respiratory failure status post intubation and mechanical ventilation, resolved. We will continue with oxygen supplementation as needed. Continue to monitor this patient closely. He is not complaining of chest pain, shortness of breath or sputum production. Pulmonary Department on board. 2. Alcohol withdrawal symptoms, resolved. As per report, apparently this patient had alcohol withdrawal and/or delirium tremens while he was on the ventilator, now he seems to be stable. No signs or symptoms of withdrawal. 3. Suicidal ideation, evaluated by [facility], which recommended to transfer this patient to a psychiatric facility. 4. Depression and history of bipolar disorder. Aware. As above. 5. Alcohol abuse. This patient has been highly advised against alcohol use. I will continue with daily cessation education. As per the patient, he will not drink anymore. 6. Obesity. Diet and exercise has been discussed. 7. Nutrition. Continue with same management. 8. Atrial fibrillation. This patient's [id number] score is 1. He has been treated only with aspirin and Toprol-XL. This patient has been trying on and off to leave AMA. He is not agitated, he is calm. I explained to him multiple times that he will need to go to a psychiatric center and we need to wait until we have a place for him. He seems to understand but as per the patient, he is desperate and now he does not want to hurt himself or others. As per the patient, he is not going to drink anymore either. He will be evaluated by one of my colleagues and I will get [facility] probably tomorrow or Thursday to evaluate this patient again to see what they think about it since we have been looking for placement and it has been denied multiple times. cc: Maxim Bailey MD
[2018-12-04] MEDS: ULTRAM PO PRN (22:45)
[2018-12-05] MEDS: DUONEB (A & A) INH SCH ×6 (05:16→23:18)
[2018-12-05] MEDS: HUMULIN R SUBQ SCH ×4 (06:05→20:30)
[2018-12-05] MEDS: PROTONIX PO SCH (06:58)
[2018-12-05] MEDS: TYLENOL NG PRN (12:25)
[2018-12-05] MEDS: KLOR-CON PO SCH ×2 (12:25→20:37)
[2018-12-05] MEDS: MAG-OX PO SCH ×2 (12:25→20:38)
[2018-12-05] MEDS: ASPIRIN PO SCH (12:26)
[2018-12-05] MEDS: LOVENOX SUBQ SCH (12:26)
[2018-12-05] MEDS: TOPROL XL PO SCH ×2 (12:27→12:28)
[2018-12-05] MEDS ORDERED: VITAMIN D PO SCH (13:30)
--- NOTE | 2018-12-05 13:44 | PROGRESS NOTE ---
DATE: 12/05/2018 SUBJECTIVE: No acute events overnight, the patient has been already evaluated by [facility] a few days ago, and they recommended inpatient treatment, but in a psychiatric center. OBJECTIVE: Vital Signs: Temperature 97.9 degrees, pulse 54, respiratory rate 16, blood pressure 115/61, oxygen saturation 95% on room air. HEENT: Head normocephalic, no trauma. PERRLA. Neck: Supple. No JVD. No masses. Central trachea. Chest: Clear to auscultation. Some scattered rhonchi at the bases. Abdomen: Soft, nontender, nondistended. No hepatosplenomegaly. Extremities: Trace edema. No clubbing, no cyanosis. Neurological: This patient is alert and oriented x3. No focal deficits. LABORATORY: No lab work done today. Glucose 113, 128. ASSESSMENT AND PLAN: 1. Acute hypoxemic respiratory failure status post intubation and mechanical ventilation, resolved. We will continue with oxygen supplementation as needed. Continue to monitor this patient closely. He is not complaining of chest pain, shortness of breath, or sputum production. Pulmonary Department on board. 2. Alcohol withdrawal symptoms, resolved. As per report, apparently this patient had alcohol withdrawal and/or delirium tremens while he was on the ventilator. Now he seems to be stable no signs of withdrawal. 3. Suicidal ideation. Evaluated by [facility] which recommended to transfer this patient to a psychiatric unit. 4. Depression and history of bipolar disorder. Aware. 5. Alcohol abuse. This patient has been highly advised against alcohol use. I will continue with daily cessation education. 6. Nutritional status. Continue with the same management. 7. Obesity. Diet and exercise have been discussed. 8. Atrial fibrillation. This patient's CHADS2-VASc score is 1. He has been treated only with aspirin, and recently I put him on Toprol-XL. I have decreased the dose from 50 to 25 a day due to mild bradycardia, asymptomatic. Overall, this patient seems to be stable. As per the patient, he does not want to hurt himself anymore. I will probably get a new evaluation by [facility] tomorrow to see what they think about it since we have been trying to send this patient to multiple places, and he has been denied. On the other hand, I will restart some of his medications as well that he used to be on at home before coming to the hospital. cc: Maxim Bailey MD
[2018-12-05] MEDS: REMERON PO SCH (20:37)
[2018-12-05] MEDS: CYMBALTA PO SCH (20:38)
[2018-12-05] MEDS: ULTRAM PO PRN (20:39)
[2018-12-06] MEDS: DUONEB (A & A) INH SCH ×6 (04:56→23:56)
[2018-12-06] MEDS: HUMULIN R SUBQ SCH ×4 (06:00→20:17)
[2018-12-06] MEDS: PROTONIX PO SCH (06:06)
--- NOTE | 2018-12-06 07:29 | EKG Report ---
Test Performed on : 12/04/2018 00:17:51 AM Test Reason : Suicidal Ideations,Depression Blood Pressure : / mmHG Vent. Rate : 057 BPM Atrial Rate : 057 BPM P-R Int : 156 ms QRS Dur : 102 ms QT Int : 444 ms P-R-T Axes : 030 -12 021 degrees QTc Int : 432 ms Sinus bradycardia. Otherwise normal ECG When compared with ECG of 21-NOV-2018 01:31, Sinus rhythm. has replaced Atrial fibrillation. Vent. rate has decreased BY [address] no longer depressed in Inferior leads ST no longer depressed in Anterolateral leads T wave amplitude has increased in Lateral leads Confirmed by Isaías BARTHOLOMEW, Andi Carpenter ([id number]) on 12/06/2018 9:30:00 AM
[2018-12-06] MEDS: LOVENOX SUBQ SCH (09:17)
[2018-12-06] MEDS: MAG-OX PO SCH ×2 (09:17→21:03)
[2018-12-06] MEDS: VITAMIN B-12 SL SCH (09:17)
[2018-12-06] MEDS: ASPIRIN PO SCH (09:17)
[2018-12-06] MEDS: TOPROL XL PO SCH (09:17)
[2018-12-06] MEDS: KLOR-CON PO SCH ×2 (09:17→21:04)
--- NOTE | 2018-12-06 13:02 | PROGRESS NOTE ---
DATE: 12/06/2018 SUBJECTIVE: No acute events overnight. This patient has been evaluated by [facility] due to suicidal ideation. As per the patient, now he is not suicidal anymore, and he is not going to drink alcohol anymore. I will request again an evaluation by Psychiatric Department to see what they say about it. We have been trying to transfer this patient to numerous facilities, but they have refused him due to his dual diagnoses of alcohol and psychiatric issues. OBJECTIVE: Vital Signs: Temperature 97.8 degrees, pulse 57, respiratory rate 16, blood pressure 120/69, oxygen saturation 93 on room air. HEENT: Head normocephalic, no trauma. PERRLA. Neck: Supple. No JVD. No masses. Central trachea. Chest: Some scattered rhonchi at the bases. Abdomen: Soft, nontender, nondistended. No hepatosplenomegaly. Extremities: Trace edema. No clubbing, no cyanosis. Neurological: Alert. This patient is sleepy, but arousable. He is oriented x3. No focal deficits. LABORATORY: Glucose 129. ASSESSMENT AND PLAN: 1. Acute hypoxemic respiratory failure, status post intubation and mechanical ventilation, resolved. We will continue with oxygen supplementation as needed. Continue to monitor this patient closely. He is not complaining of chest pain, shortness of breath, or sputum production. Pulmonary Department on board. 2. Alcohol withdrawal symptoms, resolved. As per report, apparently this patient had alcohol withdrawal and delirium tremens while he was on the ventilator. Now he seems to be stable, no signs of withdrawal, and as per the patient, he is not going to drink alcohol anymore. 3. Suicidal ideation. Evaluated by [facility] which recommended to transfer this patient to a psychiatric unit. I will request a new evaluation today to see his progress. 4. Depression and history of bipolar disorder. Aware. 5. Alcohol abuse. This patient has been highly advised against alcohol use. I will continue with daily cessation education. As per the patient, he is not going to drink anymore. 6. Nutritional status. Continue with same management. 7. Obesity. Diet and exercise have been discussed. 8. Atrial fibrillation. This patient's CHADS2-VASc score is 2. He had been treating only with aspirin, and I recently put this patient on Toprol-XL. I have decreased his dose from 50 to 25 since he is having mild asymptomatic bradycardia. Overall, this patient seems to be stable. Per the patient, he does not want to hurt himself anymore. We are getting a new evaluation by [facility] to see what they think about it. This patient wants to go home. cc: Maxim Bailey MD
[2018-12-06] MEDS: ULTRAM PO PRN (21:03)
[2018-12-06] MEDS: REMERON PO SCH (21:03)
[2018-12-06] MEDS: CYMBALTA PO SCH (21:03)
[2018-12-07] MEDS: DUONEB (A & A) INH SCH ×5 (03:25→15:31)
[2018-12-07] MEDS: PROTONIX PO SCH (06:30)
[2018-12-07] MEDS: HUMULIN R SUBQ SCH ×3 (06:30→16:55)
[2018-12-07] MEDS: KLOR-CON PO SCH (08:25)
[2018-12-07] MEDS: LOVENOX SUBQ SCH (08:25)
[2018-12-07] MEDS: ASPIRIN PO SCH (08:25)
[2018-12-07] MEDS: TOPROL XL PO SCH (08:26)
[2018-12-07] MEDS: MAG-OX PO SCH (08:26)
[2018-12-07] MEDS: VITAMIN B-12 SL SCH (08:27)
--- NOTE | 2018-12-07 14:22 | DISCHARGE SUMMARY ---
ADMISSION DATE: 11/20/2018 DISCHARGE DATE: HISTORY AND HOSPITAL COURSE: Mr. Saleh presented on 11/20/2018. States he has been drinking a lot and he was going through withdrawals. Needed to stop but also had some suicide thoughts, harm. He was drinking 2 pints of vodka a day and he has drank a lot since he was 6 years old by his report. History of paranoid schizophrenia, dementia, hypertension. Presented to the emergency room with nausea, vomiting, alcohol withdrawals. States that he normally drinks 2 pints of vodka a day but the day before, he drank about half a gallon, maybe more. Very depressed. Want to kill himself by his report when he came in and stated that he feels that way when he gets good and drunk. He was vomiting up and it appeared to be biliary type vomitus. They noted that in the emergency room after he drank some Gatorade. The patient was admitted to the hospital and put in the unit. Went through withdrawals. Had an abdominal ultrasound on 11/21/2018. There was fatty infiltration of the liver. No other visible abnormalities. Had a cardiology consult with Dr. Yoel Flores. He had an episode of atrial fibrillation and so treating that. Put him on metoprolol. Initially put him on Cardizem and infusion and then started some metoprolol. He has converted back to sinus rhythm. His rate seemed to be controlled. Pulmonary was consulted because of acute hypoxemic respiratory failure. There was no sign of emboli. They felt like part of it was from metabolic acidosis. He showed steady improvement. Able to move out of the unit. He wanted to go to [facility] or a psych unit to help with his depression and suicidal thoughts. Initially denied. Continued therapy here. Was able to eat p.o. and get up and walk around. Breathing was comfortable. [facility] agreed to take him as an outpatient. Because of his atrial fibrillation and patient's CHADS2-VASC score was 2. We treated him just with aspirin. He is on Toprol and we will see if we can discharge him to go home. Then he is going to be evaluated at [facility]. DISCHARGE MEDICATIONS: Aspirin 325 mg a day, vitamin B12 at 2500 mcg sublingual daily, Cymbalta 30 mg at bedtime, vitamin D 50,000 units weekly, magnesium oxide 800 mg b.i.d., Toprol-XL 25 mg a day, Remeron 15 mg at bedtime, Protonix 40 mg once a day. I will give him some Ultram 50 mg p.o. q.6 hours p.r.n. pain. FOLLOWUP: He is to follow up with his primary care and I think from here, he is going to go to [facility] for evaluation. cc: Andi Metz MD
[2018-12-07 17:05] VITALS: BP 124/70
== END 2018-12-07 18:00 | disposition home or self-care (01) | DRG 896 ==
LOC: SUPCPDRO → ED 16:18 → ICU 22:04 → SUATTDRO 22:04 → 3N 11-27 15:30
PROVIDERS: ATTEND Emergency Medicine
CPT/HCPCS: 31500; 71010; 71020; 71045; 71046; 71275; 74019; 74020; 76700; 80048; 80053; 80074; 80101; 80202; 80301; 80307; 80320; 80324; 80345; 80346; 80353; 80358; 80361; 80365; 81001; 82009; 82055; 82140; 82150; 82271; 82550; 82553; 82805; 82948; 83036; 83605; 83690; 83735; 83992; 84100; 84443; 84484; 85025; 85610; 85730; 87040; 87070; 87205; 93005; 93010; 93306; 94002; 94003; 94640; 94660; 94761; 96361; 96365; 96366; 96367; 96368; 96375; 96376; 97110; 97162; 97165; 97530; 97535; 99285; A9270; C8929; C9113; G0431; G0434; G0479; G0480; G6040; J0330; J0692; J1650; J1940; J2060; J2250; J2405; J2543; J3370; J3411; J3475; J3480; J7030; J7040; Q9957; Q9967; S0164; XXXXX